=== PATIENT | female | born 1970 | race Caucasian/White ===

== ENCOUNTER 2024-01-02 22:19 | Inpatient (IN) | payer BC, SELFPAY ==
--- NOTE | 2024-01-02 16:53 | ED.PDOC.TRB ---
ED Provider Triage
-
Patient seen by provider in Triage?: Seen in Triage
Attestation: A medical screening examination has been initiated by a qualified medical provider. Based on the assessment performed at this time, it has been determined that an emergent medical condition may exist and the patient has been informed
that further medical evaluation and possible additional diagnostic testing may be needed.
HPI: 53yoF here with R sided abd pain/flank pain and bloating x 5 days. Urine started to appear a fluorescent color yesterday. Vomiting x 2 yesterday.
GENERAL: Alert , in no apparent distress
EYE: No visual abnormalities.
NECK: Trachea midline
ENT: No visible abnormalities.
LUNGS: No acute respiratory distress
NEUROLOGICAL: Alert and oriented
SKIN: Skin intact. No visible changes.
MUSCULOSKELETAL: Moving extremities normally
PSYCH: Normal and appropriate interaction.
This is a medical evaluation conducted in person to initiate diagnostic evaluation and provide initial therapeutics. Please see further documentation by the treating clinician.
Abdominal labs, UA, and CT abdomen ordered.
[2024-01-02 16:54] VITALS: BP 139/87
[2024-01-02 17:37] LABS: % Basophils 0.4 % (0-2); % Immature Granulocytes 0.7 % (0-0.5); % Lymphocytes 5.7 % (20.5-51.1); % Monocytes 5.7 % (1.7-9.3); % Neutrophils 86.5 % (42.2-75.2); Absolute Basophils 0.1 10^3/uL (0-0.2); Absolute Eosinophils 0.2 10^3/uL (0-0.7); Absolute Immature Granulocytes 0.1 10^3/uL (0-0.05); Absolute Monocytes 1.1 10^3/uL (0.1-0.6); Absolute Neutrophils 15.9 10^3/uL (1.4-6.5); Hematocrit 39.3 % (37.0-47.0); Mean Corp Hgb Conc. 33.1 g/dL (33.0-37.0); Mean Corpuscular Hgb 27.7 pg (27.0-31.0); Mean Corpuscular Volume 83.6 fL (81.0-99.0); Mean Platelet Volume 11.1 fL (7.4-10.4); Nucleated Red Blood Cells % 0 %; Platelet Count 256 10^3/uL (130-400); Red Cell Dist. Width 15.2 % (11.5-14.5); White Blood Cell Count 18.4 10^3/uL (4.8-10.8)
[2024-01-02 17:50] LABS: ALT (SGPT) 328 U/L (0-35); AST (SGOT) 110 U/L (14-36); Albumin 4.1 g/dl (3.5-5.0); Alkaline Phosphatase 537 U/L (38-126); Blood Urea Nitrogen 14 mg/dl (7-17); Calcium 9.7 mg/dl (8.4-10.2); Carbon Dioxide 21 mmol/L (22-30); Chloride 103 mmol/L (98-107); Glucose 101 mg/dl (70-99); Lipase 34 U/L (23-300); Potassium 3.6 mmol/L (3.5-5.1); Sodium 137 mmol/L (135-145); eGFR > 60.00
[2024-01-02 17:58] LABS: Urine Albumin Negative (Neg - Trace); Urine Bilirubin 1+ (Negative); Urine Character Clear (Clear); Urine Color Yellow; Urine Glucose Negative (Negative); Urine Ketone 2+ (Negative); Urine Leukocyte Negative (Negative); Urine Nitrite Negative (Negative); Urine Occult Blood Negative (Negative); Urine Specific Gravity 1.005 (<1.030); Urine Urobilinogen Negative (Neg - 1+)
--- NOTE | 2024-01-02 20:53 | ED.GENMED ---
History of Present Illness
General
Chief Complaint: Abdominal Pain
Source: patient
Time Seen by Provider: 01/02/24 20:52
History of Present Illness
History of Present Illness:
53yoF with a history of asthma and tobacco use presenting for evaluation of abdominal pain. Patient reports right upper quadrant abdominal pain for the past 5 days. Pain intermittently radiates to the back. Pain is worse after eating. She had a
similar pain 6 months ago which resolved spontaneously. She started to notice that her skin appeared jaundiced yesterday. She also noticed that her urine appeared to be a fluorescent color. She had 2 episodes of vomiting yesterday and has not
been eating much due to her symptoms. She denies any fevers, chills, diarrhea. Previous abdominal surgeries include a section.
Phy Exam
General Physical Exam
General Presentation: no apparent distress
General age: appears stated age
General Skin: warm and dry
General Habitus: normal
General Mental: alert
Eye Exam
Eye Exam: other (Scleral icterus noted)
Cardiovascular Exam
Cardiovascular Exam: regular rate/rhythm
Pulmonary Exam
Pulmonary Exam: lungs clear, no respiratory distress, no crackles and no wheezing
Gastrointestinal Exam
Gastrointestinal Exam: soft, non distended and tender (Mild RUQ tenderness. Negative Mari's sign. No CVA tenderness. )
Cuco Coma Scale
Eye Opening: Spontaneous
Verbal Response: Oriented
Motor Response: Obeys Commands
GCS Total Score: 15
Skin Exam
Skin Exam: jaundice
Psychiatric Exam
Psychiatric Exam: normal mood/affect
Course
Orders/Labs/Results
Orders:
Orders
01/02/24 17:04
Complete Blood Count/With Diff Urgent
Comprehensive Metabolic Panel Urgent
Lipase Urgent
01/02/24 17:10
CT Abd/pelvis W Iv Cont Urgent
Comment:
Reason For Exam: R sided abd/flank pain
01/02/24 17:51
Urinalysis Reflex To Culture Urgent
Date Specimen was Collected: 01/02/24
Time Specimen was Collected: 17:46
01/02/24 19:10
US Abdomen Complete/Upper Urgent
Comment:
Reason For Exam: R sided abd pain, abnormal CT
01/02/24 21:12
0.9% Sodium Chloride 1000 ml [Nss] 1,000 ml IV BOLUS
CefTRIAXone [Rocephin] 2,000 mg IV NOW STA
MetroNIDAZOLE 500 MG/100 ML [Flagyl 500 mg] 100 ml IV ONCE
01/02/24 21:18
Admit/Transfer Patient As Directed
Co-Sign Provider:
Level of Care: Inpatient admission
Assign to:: Medical/Surgical
Physician / Group: hospitalist
Diagnosis: choledocholithiasis
Reason for Hospitalization: obstructed common bile duct
Expected length of stay greater than two midnights?: Yes
ELOS- Estimated Length of Stay in days: 2
I certify the patient meets the requirements for IP care: Yes
PRN Pain Medication Management As Directed
May give lesser potent ordered pain med per pt: Yes
preference::
Protocol:: Medication orders for pain may be administered in a
manner that supports deferring to patient preference
when the pt is:
- Requesting an ordered lesser potent pain medication.
Least to most potent pain medications are defined
as: acetaminophen < NSAID < tramadol < opioids
(morphine, oxycodone, hydromorphone).
- Requesting a lesser dose of the same medication IF
ORDERED.
- Requesting a less intrusive route of administration
if both routes are prescribed by the provider (PO <
IV).
01/02/24 21:19
Code Status As Directed
Resuscitation Status: Full Code
01/02/24 21:45
Sterile Water [Sterile Water For Injection] 20 ml .ROUTE .STK-MED
01/02/24 22:00
Flush (0.9% Sodium Chloride) [Flush (Nss)] See Dose Instructions IV PER PROTOCOL
01/02/24 22:09
Ketorolac [Toradol] 15 mg IV NOW STA
Abnormal Lab Results
01/02/24 01/02/24
17:04 17:51
WBC 18.4 H 10^3/uL
(4.8-10.8)
RDW 15.2 H %
(11.5-14.5)
MPV 11.1 H fL
(7.4-10.4)
Abs Immat Gran (auto) 0.1 H 10^3/uL
(0-0.05)
Absolute Neuts (auto) 15.9 H 10^3/uL
(1.4-6.5)
Absolute Lymphs (auto) 1.0 L 10^3/uL
(1.2-3.4)
Absolute Monos (auto) 1.1 H 10^3/uL
(0.1-0.6)
Immature Gran % 0.7 H %
(0-0.5)
Neutrophils % 86.5 H %
(42.2-75.2)
Lymphocytes % 5.7 L %
(20.5-51.1)
Carbon Dioxide 21 L mmol/L
(22-30)
Glucose 101 H mg/dl
(70-99)
Total Bilirubin 8.0 H mg/dl
(0.2-1.3)
AST 110 H U/L
(14-36)
ALT 328 H U/L
(0-35)
Alkaline Phosphatase 537 H U/L
(38-126)
Urine Ketones 2+ A
(Negative)
Urine Bilirubin 1+ A
(Negative)
01/02/24 17:04
09/30/24 17:04
Vital Signs
Initial and Last Documented VS:
Initial Vital Signs
Temp Pulse Resp BP Pulse Ox
98 F 105 16 139/87 98
01/02/24 16:54 01/02/24 16:54 01/02/24 16:54 01/02/24 16:54 01/02/24 16:54
Last Documented Vital Signs
Temp Pulse Resp BP Pulse Ox
98 F 105 16 139/87 98
01/02/24 16:54 01/02/24 16:54 01/02/24 16:54 01/02/24 16:54 01/02/24 16:54
MDM/Problems Addressed
Differential Diagnosis Includes:
53yoF here with RUQ pain x 5 days with jaundice x 1 day. No f/c. Patient is afebrile and hemodynamically stable. Skin appears jaundiced on exam. No signs of peritonitis on abdominal exam. Differential diagnosis includes but is not limited to:
Cholecystitis, choledocholithiasis, cholangitis, hepatitis, pancreatitis, malignancy
Initial ED plan: Patient initially seen in triage. Abdominal labs and CT abdomen were ordered. Labs reveal a leukocytosis with a white count of 18.4. Total bilirubin 8. AST 110 and ALT 328. Lipase is normal. CT shows possible mild gallbladder
wall thickening with intrahepatic and extrahepatic biliary tract dilatation. Ultrasound recommended for more complete evaluation.
*Critical Care Note
Total Time (30-74mins, 75-104mins- exclusive of procedures): Not Applicable
Update Note
Update Note:
Abdominal ultrasound was added and findings are concerning for a common bile duct stone. IV Rocephin and Flagyl ordered given leukocytosis. She was admitted for further evaluation and management.
ED Attending Note
-
Portions of this chart may have been created with voice recognition software.� Occasional wrong word or��sound alike� substitutions may have occurred due to the inherent limitations of voice recognition software.
Discharge Plan
Departure
Patient Disposition: Admit
Date of Disposition: 01/02/24
Time of Disposition: 21:14
Presentation/result/management discussed w/ accepting MD/DO: Hospitalist
Discharge Problem:
Obstructive jaundice
Prescriptions:
No Action
albuterol sulfate 90 mcg/actuation Hfa Aerosol Inhaler
2 puff INHALATION R Q6HPRN PRN (Reason: sob)
ibuprofen-acetaminophen [Advil Dual Action] 125-250 mg Tablet
2 tab PO Q8HPRN PRN (Reason: mild pain)
Referrals:
UNKNOWN - PT DOES,NOT KNOW [Family Provider] -
Interventions
Interventions:
HH-Rhmxqt-Pqjllkckws Assessment Last Done: 01/02/24 20:44
Discharge Date and Time
Print Language: [place] LUCI[place]
--- NOTE | 2024-01-02 21:36 | HPS.HSE ---
Family Physician
-
Family Physician: NOT KNOW UNKNOWN - PT DOES
Chief Complaint
-
Jaundice, right upper quadrant pain
History of Present Illness
This is a 53-year-old with a past medical history of asthma mild intermittent who presents to the emergency department with 5 days of abdominal pain and 1 day of jaundice.
Patient reports sudden onset of right upper quadrant abdominal pain that radiates to the back. Occasional epigastric pain. Nausea and an episode of bilious emesis. Denies fevers chills diarrhea. Denies lightheadedness or dizziness. Unable to
tolerate p.o. over the last 3 days. Reported that she noticed discoloration of her urine this morning and sent from the ED. She denied any dysuria or flank pain.
He denies any prior intra-abdominal surgeries. Denies abdominal bloating.
He remained emergency department the patient was afebrile blood pressure was 139/87 pulse was 100 and she had mild oxygen saturation room air. She had a white count of 18,000 with a normal hemoglobin and blood count. Chemistries showed normal
lites. Elevated total bilirubin of 8 ALT 110 AST 328 and alk phos 537. Her lipase was normal. A CT scan of the abdomen pelvis as well as right upper current ultrasound shows choledocholithiasis with obstruction in the common bile duct. There was
no sonographic Mari sign. Cholecystitis could not be ruled out but there was no definite gallbladder distention.
Medical History
Past Medical History
Past Medical History: Reports Asthma
Past Surgical History: Reports None
Social History
Tobacco: Smoker
Alcohol: None
Drug: None
Personal:
Living: With Family
Employment: Employed
Family History
Family History: CAD
Allergies / Home Medications
Allergies reflects when Allergies were last updated in [facility].
Home Medications with original date entered in [facility]
Allergy/Medication List:
Allergies
Allergy/AdvReac Type Severity Reaction Status Date / Time
Penicillins Allergy Rash Verified 01/02/24 16:58
Home Medications
albuterol sulfate 90 mcg/actuation aerosol inhaler 2 puff inhalation R Q6HPRN PRN sob 01/02/24
ibuprofen 125 mg-acetaminophen 250 mg tablet (Advil Dual Action) 2 tab PO Q8HPRN PRN mild pain 01/02/24
Review of Systems
-
History Source: Patient
Constitutional: Reports No Symptoms
EENT: Reports No Symptoms
Respiratory: Reports No Symptoms
Cardiac: Reports No Symptoms
Abdomen/GI: Reports Abdominal Pain, Nausea and Vomiting
: Reports Other (Yellow urine)
Musculoskeletal: Reports No Symptoms
Skin: Reports No Symptoms
Neurological: Reports No Symptoms
Endocrine: Reports No Symptoms
Hematologic/Lymphatic: Reports No Symptoms
Psych: Reports No Symptoms
Physical Exam
Vital Signs
Vital Signs
Temp Pulse Resp BP Pulse Ox
98 F 105 16 139/87 98
01/02/24 16:54 01/02/24 16:54 01/02/24 16:54 01/02/24 16:54 01/02/24 16:54
Physical Exam
General: Well Developed, Well Nourished and Comfortable
HEENT: NormoCephalic, Moist mucous membranes, Atraumatic, PERRLA and Other (scleral icterus)
Respiratory: Clear
Cardiac: S1/S2 and Regular Rhythm
Breast: Deferred by me
GI: Soft, Non Distended and Normal Bowel Sounds
Rectal: Deferred by Provider
Genito-urinary: Deferred by me
Musculoskeletal: No Clubbing, No Cyanosis and No Edema
Skin: Jaundice
Neuro: AO x 3
Hematologic/Lymphatic: No Lymphadenopathy
Psych: Calm
Laboratory Results
-
01/02/24 17:04
01/02/24 17:04
Laboratory Results
Total Bilirubin 8.0 mg/dl (0.2-1.3) H 01/02/24 17:04
AST 110 U/L (14-36) H 01/02/24 17:04
ALT 328 U/L (0-35) H 01/02/24 17:04
Alkaline Phosphatase 537 U/L (38-126) H 01/02/24 17:04
Lipase 34 U/L (23-300) 01/02/24 17:04
Data Reviewed
-
CT Scan: Report Reviewed by me
Ultrasound: Report Reviewed by me
Lab Data: Labs Reviewed by me
Old Records: Reviewed
Impression/Plan
-
IMPRESSION:
53-year-old with history of asthma who presents with 5 days of recurrent right lower quadrant abdominal pain without fevers or chills as well as jaundice found to have elevated total bilirubin, mild elevation in AST ALT and alk phos with normal
lipase as well as imaging showing gallbladder sludge and stones as well as common bile duct dilatation consistent with CBD obstruction. She is currently well-appearing and comfortable. She is afebrile. She is hemodynamically stable. She has no
known risk factors for resistant organisms.
PLAN:
Choledocholithiais -patient with choledocholithiasis with obstructive jaundice, does not meet criteria for acute cholangitis. Cannot absolutely rule out cholecystitis but no definite evidence at this time.
- admit to med surg
- npo
- iv fluids, pain control and antiemetics
- given leukocytosis and possible calculuous cholecystitis, started on IV abx, ceftriaxone/metronidazole due to limited risk for resistant organisms
- GI consultation for likely ercp
- trend LFTs and bilirubin
- surgery consultation.
Asthma - No acute exacerbaction
- continue prn albuterol
DVT PPX - lovenox sq
Code status - Full Code
[2024-01-02] MEDS: ROCEPHIN 2000 MG IV (21:48)
[2024-01-02] MEDS: NSS 1000 IV (22:02)
[2024-01-02] MEDS: TORADOL 15 MG IV (22:24)
[2024-01-02 22:35] VITALS: BP 149/99
[2024-01-02 22:45] VITALS: BP 160/96
[2024-01-02 23:10] VITALS: BMI 36.5
[2024-01-02] MEDS: D5LR 1000 IV (23:26)
[2024-01-02] MEDS: FLAGYL 500 MG 100 IV (23:35)
[2024-01-02] MEDS: DILAUDID 0.5 MG IV (23:36)
[2024-01-03] VITALS (11 sets, daily range): BP systolic 126–173; BP diastolic 66–107
--- NOTE | 2024-01-03 00:42 | PTCARENOTE ---
Patient arrived to unit via stretcher around 22:25 with dx of Choledocholithiasis. Patient aaox3. Pleasant and cooperative with care. No signs of distress. Oriented to unit. Call kelley within reach.
[2024-01-03 06:36] LABS: Hematocrit 35.7 % (37.0-47.0); Hemoglobin 12.1 g/dL (12.0-16.0); Mean Corp Hgb Conc. 33.9 g/dL (33.0-37.0); Mean Corpuscular Hgb 28.1 pg (27.0-31.0); Mean Platelet Volume 10.6 fL (7.4-10.4); Platelet Count 203 10^3/uL (130-400); Red Cell Dist. Width 15.2 % (11.5-14.5); White Blood Cell Count 16.1 10^3/uL (4.8-10.8)
[2024-01-03 06:59] LABS: ALT (SGPT) 238 U/L (0-35); AST (SGOT) 64 U/L (14-36); Albumin 3.5 g/dl (3.5-5.0); Alkaline Phosphatase 473 U/L (38-126); Blood Urea Nitrogen 11 mg/dl (7-17); Calcium 8.8 mg/dl (8.4-10.2); Carbon Dioxide 21 mmol/L (22-30); Chloride 105 mmol/L (98-107); Direct Bilirubin 6.2 mg/dl (0.0-0.4); Estimated Creatinine Clearance 117 ml/min; Glucose 113 mg/dl (70-99); Potassium 3.2 mmol/L (3.5-5.1); Sodium 140 mmol/L (135-145); Total Bilirubin 7.3 mg/dl (0.2-1.3); Total Protein 6.3 g/dl (6.3-8.2); eGFR > 60.00
[2024-01-03] MEDS: FLAGYL 500 MG 100 IV ×3 (07:09→23:32)
[2024-01-03] MEDS: TORADOL 10 MG IV ×2 (07:21→15:41)
--- NOTE | 2024-01-03 08:00 | CON.GI ---
Addendum entered and electronically signed by Carrie Anaya MD 01/03/24 13:48:
I saw and examined the patient.
The BAGGING MACHINE OPERATOR's note was reviewed and I agree with the note.
Comment: This is a 53 female with history of asthma who was in her usual state of health up until about 5 days prior to admission when she started to develop lower abdominal pain initially which did subsequently radiate to the right upper quadrant.
She also has not really eaten much oral intake for the past 5 days because of the pain. She denies any fevers or chills she did have 2 episodes of vomiting on Tuesday but none since then and also started to notice dark urine since Tuesday, denies
jimmy colored stools, no diarrhea or constipation, no rectal bleeding or melena, no prior endoscopy or colonoscopy. also denies any recent weight loss. She did have a similar episode about 6 months ago but that seems to have lasted for about a day
or 2 and resolved. Since admission her imaging has shown choledocholithiasis with ductal dilatation and on CT questionable small pancreatic mass and on ultrasound also noted to have possible complex liver cyst. She did have abnormal LFTs with
normal lipase and mild leukocytosis noted and has been on antibiotics since admission.
Assessment and plan abdominal pain with symptoms of nausea vomiting imaging with choledocholithiasis and labs consistent with it. Will schedule for ERCP and also possible EUS defer decision of EUS to Dr. Francis given questionable small mass noted in
the pancreatic head and complex liver cyst also noted on ultrasound. She is also been evaluated by Dr. Dallas for eventual cholecystectomy timing per surgery. Continue antibiotics for now and could probably DC after the ERCP once the obstruction
is resolved. Will also get Hepatitis serologies. Also needs OP screening colonoscopy.
Original Note:
Consultation
-
Date/Time Consultation Requested: 01/02/24 @ 23:00
Date/Time Consultation Performed: 01/03/24 @ 08:00
Requesting Provider: Dr. Middleton
Performing Provider: WILLIAM Gandhi; Dr. Carrie Anaya
Reason for Consultation: choledocholithiasis, jaundice
Medical History
Chief Complaint / HPI
Chief Complaint: jaundice, RUQ pain
History of Present Illness:
The pt is a 53 yo female with a PMH significant for asthma, who presented to the ER with complaints of abdominal pain in the RUQ and jaundice, found to have CT and ultrasound findings concerning for possible choledocholithiasis with increased liver
enzymes. She reports that for the past 5 days she has been having abdominal pain, starting in the lower abdomen then progressively up into the mid abdomen under her right breast. She reports the pain was continuous, radiating into her back
worsening over the past several days. She notes that she did have an episode of vomiting on Tuesday and was unable to tolerate much other than clear liquids. She notes her appetite has been extremely poor otherwise. She reports on Tuesday her
urine started to get dark and she noticed some discoloration of her skin as well. She reports about 6 months ago she had a similar pain but was increasingly stressed due to her job at that time. She reports the pain did subside after 1 to 2 days.
She denies any fevers or chills. She denies any heartburn, reflux, dysphagia, odynophagia, change in bowel habits, melena, hematochezia, hematemesis, or weight loss unintentionally. She denies any prior history of liver disease or gallbladder
issues. She denies any use of blood thinners or NSAIDs. She denies any significant alcohol use. She is a less than 1 pack/day smoker for the last 40 years. She denies any drug use. She reports family history her father had throat cancer and
breast cancer among her paternal grandmother and paternal aunt.
Upon evaluation in the ER, she underwent a CT of the abdomen and pelvis and ultrasound of the abdomen which showed findings concerning for choledocholithiasis with intra and extrahepatic biliary ductal dilation. Also with possible gallbladder wall
thickening, subcentimeter low-attenuation duration right renal lesion, and few small nonspecific retroperitoneal lymph nodes. Routine labs on admission showed WBC 18,400, hemoglobin 13.0, platelets 256,000, Sodium 137, potassium 3.6, BUN 14,
creatinine 0.6, total bilirubin 8, direct bilirubin 6.2, AST 110, ALT 328, alk phos 537, lipase 34. Urinalysis showing ketones and bilirubin otherwise negative for infection. She was made n.p.o. and admitted for further evaluation by GI
Past Medical History
Past Medical History: Asthma
Past Surgical History: , Orthopedic (Bilateral ankle surgery with plates and pins after trauma) and Other (Cyst excision from her neck)
Social History
Tobacco: Smoker (<1 PPD for 40 years)
Alcohol: None
Drug: None
Family History
Family History: Cancer (father-throat cancer)
Allergies / Home Medications
Allergy/AdvReac Type Severity Reaction Status Date / Time
Penicillins Allergy Rash Verified 01/02/24 16:58
�Medication �Instructions �Recorded
albuterol sulfate 90 mcg/actuation 2 puff inhalation R Q6HPRN PRN sob 01/02/24
aerosol inhaler
ibuprofen 125 mg-acetaminophen 250 2 tab PO Q8HPRN PRN mild pain 01/02/24
mg tablet (Advil Dual Action)
Review of Systems
-
History Source: Patient
Constitutional: Reports No Symptoms
EENT: Reports No Symptoms
Respiratory: Reports No Symptoms
Cardiac: Reports No Symptoms
Abdomen/GI: Reports Abdominal Pain, Nausea and Vomiting
: Reports Dark Urine
Musculoskeletal: Reports No Symptoms
Skin: Reports Other (Jaundice)
Neurological: Reports No Symptoms
Endocrine: Reports No Symptoms
Hematologic/Lymphatic: Reports No Symptoms
Vital Signs
Temp Pulse Resp BP Pulse Ox
99.3 F 99 18 157/92 94
01/03/24 07:05 01/03/24 07:05 01/03/24 07:05 01/03/24 07:05 01/03/24 07:05
Physical Exam
Exam
General: Well Developed, Well Nourished, No Apparent Distress and Other (Jaundice)
HEENT: Normocephalic, Atraumatic and Other (B/L scleral icterus)
Respiratory: Clear
Cardiac: S1/S2 and Regular Rhythm
Breast: Deferred by me
GI: Soft, Non Distended, Normal Bowel Sounds and Tender (Right upper quadrant and mid-epigastric area)
Rectal: Deferred by Provider
Musculoskeletal: No Edema
Skin: Warm and Dry
Neuro: Awake, Alert and Oriented
Psych: Calm
Results
WBC 16.1 10^3/uL (4.8-10.8) H 01/03/24 05:35
Hgb 12.1 g/dL (12.0-16.0) 01/03/24 05:35
Hct 35.7 % (37.0-47.0) L 01/03/24 05:35
MCV 83.0 fL (81.0-99.0) 01/03/24 05:35
Plt Count 203 10^3/uL (130-400) D 01/03/24 05:35
Absolute Neuts (auto) 15.9 10^3/uL (1.4-6.5) H 01/02/24 17:04
Sodium 140 mmol/L (135-145) 01/03/24 05:35
Potassium 3.2 mmol/L (3.5-5.1) L 01/03/24 05:35
Chloride 105 mmol/L (98-107) 01/03/24 05:35
Carbon Dioxide 21 mmol/L (22-30) L 01/03/24 05:35
BUN 11 mg/dl (7-17) 01/03/24 05:35
Creatinine 0.5 mg/dL (0.6-1.0) L 01/03/24 05:35
Calcium 8.8 mg/dl (8.4-10.2) 01/03/24 05:35
Total Bilirubin 7.3 mg/dl (0.2-1.3) H 01/03/24 05:35
AST 64 U/L (14-36) H 01/03/24 05:35
ALT 238 U/L (0-35) H 01/03/24 05:35
Alkaline Phosphatase 473 U/L (38-126) H 01/03/24 05:35
Lipase 34 U/L (23-300) 01/02/24 17:04
Diagnostic Image Results:
01/02/24 US abdomen: IMPRESSION: Gallbladder with stone and sludge as well as wall thickening. Intrahepatic and extrahepatic biliary tract dilatation with FINDINGS SUSPICIOUS FOR COMMON BILE DUCT STONE. Negative sonographic Mari's sign. Complex
hypoechoic area in the right lobe of the liver adjacent to the gallbladder fossa which could represent a complex cyst, cannot exclude focal pericholecystic fluid. Consider surgical consultation. Visualized small portion of body of pancreas without
gross focal abnormality.
Head/tail of pancreas, abdominal aorta and IVC significantly obscured, most likely by overlying bowel gas.
01/02/24 Ct A/P w/IV contrast: IMPRESSION: Possible mild gallbladder wall thickening, cannot exclude some pericholecystic fluid. Findings compatible with intrahepatic and extrahepatic biliary tract dilatation, limited evaluation of overlapping
extrahepatic biliary tract and limited evaluation of pancreatic head without oral contrast opacification of duodenum. No high attenuation focus seen to confirm a gallstone in the expected location of the distal common bile duct. Ultrasound may be
helpful for more complete evaluation. On the basis of this study, small mass of the head of the pancreas or ampulla of Vater cannot be excluded. Subcentimeter low-attenuation right renal lesion too small to characterize. Limited evaluation of
intestinal tract without oral contrast, without intestinal obstruction or free air. Unremarkable appendix. Few small nonspecific retroperitoneal lymph nodes. No findings to suggest obstructive uropathy bilaterally.
Prior GI Procedures:
EGD: noone on file
Colonoscopy: none on file
Assessment / Plan
-
The pt is a 53 yo female with a PMH significant for asthma, who presented to the ER with complaints of abdominal pain in the RUQ for the last 5 days with dark urine found to have jaundice, with CT/US findings along with LFT pattern consistent with
likely choledocholithiasis. CT report indicating cannot exclude underlying pancreatic lesion although with no noted pancreatic ductal dilation. She reports no unintentional weight loss with acute onset of symptoms this past week worsening
progressively with associated nausea and vomiting and loss of appetite. She continues with right upper quadrant/epigastric pain, somewhat improved with IV narcotics. Significantly elevated LFTs with a total bilirubin 8, AST 110, ALT 328, alk phos
537, with a normal lipase. She is n.p.o., started on IV antibiotics with Rocephin and Flagyl given her leukocytosis. She denies any fevers.
Problem list:
-RUQ/epigastric pain, CT/US findings concerning for choledocholithiasis with intra/extrahepatic ductal dilatation, GBW thickening, sludge, stone, ?liver cyst
-elevated LFT's
-jaundice
-leukocytosis
-CT showing subcentimeter low attenuation right renal lesion, few small non-specific retroperitoneal lymph nodes
-mild asthma, controlled
Recommendations:
-Etiology of presenting symptoms most consistent with choledocholithiasis given LFT pattern and CT/ultrasound findings. Cannot exclude underlying pancreatic lesion per radiology read although with no PD dilation reported. She does have a chronic
history of smoking over 40 years.
-Will discuss imaging with Dr. Francis to determine the need for MRI with MRCP versus proceeding directly to EUS/ERCP.
-Continue n.p.o. status at this time
-Trend LFTs
-Will add hepatitis serologies
-Antibiotics with ceftriaxone and Flagyl as per primary team
-Surgical consultation pending
-PRN analgesics
-Further plan forthcoming pending above
Data Reviewed
-
CT Scan: Report Reviewed by me and Discussed with Physician
Ultrasound: Report Reviewed by me and Discussed with Physician
-
-
Thank you for consultation and allowing me to participate in the patient's care. Please call the supervisor of instruction GI physician during the after hours with any questions or concerns.
--- NOTE | 2024-01-03 09:08 | CON.GS ---
Medical History
-
Chief Complaint: RUQ/epigastric pain
History of Present Illness:
Patient is a 53 yo F with a H obesity, asthma, active tobacco use, s/p bilateral ankle surgery, and s/p who presents with approximately 5 days of abdominal pain. Ms. Carcamo states that her symptoms began as lower abdominal discomfort
which has progressed to more epigastric and RUQ abdominal pain. She reports more back pain days previously. Currently she states that her symptoms are mildly improved, but not resolved. No nausea or vomiting. No fevers or chills. She reports a
jaundice and in particular highlighter yellow/orange urine prompting presentation to the ED. She denies any pale stools. She reports a more mild attack of similar pain approximately 6 months ago which lasted a day before self resolving.
Past Medical History
Past Medical History: Asthma
Past Surgical History: and Orthopedic (Ankle surgery)
Social History
Tobacco: Smoker (1 PPD)
Alcohol: None
Drug: None
Family History
Family History: Reviewed & Noncontributory
Allergies / Home Medications
Allergy/AdvReac Type Severity Reaction Status Date / Time
Penicillins Allergy Rash Verified 01/02/24 16:58
�Medication �Instructions �Recorded �Confirmed �Type
albuterol sulfate 90 mcg/actuation 2 puff inhalation R Q6HPRN PRN sob 01/02/24 01/02/24 History
aerosol inhaler
ibuprofen 125 mg-acetaminophen 250 2 tab PO Q8HPRN PRN mild pain 01/02/24 01/02/24 History
mg tablet (Advil Dual Action)
Review of Systems
-
A 10 point review of systems was completed, and was negative except as per HPI.
Physical Exam
Vital Signs
Temp Pulse Resp BP Pulse Ox
99.3 F 99 18 157/92 94
01/03/24 07:05 01/03/24 07:05 01/03/24 07:05 01/03/24 07:05 01/03/24 07:05
01/02/24 01/03/24 01/04/24
06:59 06:59 06:59
Actual Weight 93.553 kg
Body Mass Index (BMI) 36.5
Lab Results
01/03/24 05:35
01/03/24 05:35
WBC 16.1 10^3/uL (4.8-10.8) H 01/03/24 05:35
Hgb 12.1 g/dL (12.0-16.0) 01/03/24 05:35
Hct 35.7 % (37.0-47.0) L 01/03/24 05:35
Plt Count 203 10^3/uL (130-400) D 01/03/24 05:35
Abs Immat Gran (auto) 0.1 10^3/uL (0-0.05) H 01/02/24 17:04
Neutrophils % 86.5 % (42.2-75.2) H 01/02/24 17:04
Physical Exam
General: Well Developed, Well Nourished, No Apparent Distress and Pain
HEENT: Scleral Icterus
Respiratory: Wheezes and Non Labored Respirations
Cardiac: Regular Rhythm
GI: Soft, Non Distended, Tender (Epigastrium/RUQ, negative Mari sign), Obese and Other (Nonperitoneal)
Musculoskeletal: No Edema
Skin: Warm and Dry
Neuro: Nonfocal/Grossly Intact
Data Reviewed
-
CT Scan: Image Personally Visualized and interpreted
Ultrasound: Image Personally Visualized and interpreted
Labs: Labs Reviewed by me
Assessment / Plan
-
Patient is a 53 yo F with p/w choledocholithiasis
The natural history and pathophysiology of biliary and stone disease was discussed. Anatomy was briefly reviewed. Role of cholecystectomy in preventing future episodes of choledocholithiasis and episodes of biliary colic or cholecystitis was
discussed. We discussed that typically we recommend cholecystectomy during the same admission. Of note, patient expresses a strong interest in discharge as soon as possible with outpatient surgical follow-up. GI consult noted, plan for ERCP
today. All questions answered. Will continue to follow.
-- No plans for surgical intervention today, role of cholecystectomy was reviewed, timing TBD
-- GI consult noted, plan for ERCP today
-- If remains in the hospital, make NPO past midnight for possible cholecystectomy tomorrow
--- NOTE | 2024-01-03 09:36 | W.PN.HOSP.TC ---
Today's Communication/Plan
-
see bold
Assessment / Plan
Assessment / Plan
53-year-old with history of asthma who presents with 5 days of recurrent right lower quadrant abdominal pain without fevers or chills as well as jaundice found to have elevated total bilirubin, mild elevation in AST ALT and alk phos with normal
lipase as well as imaging showing gallbladder sludge and stones as well as common bile duct dilatation consistent with CBD obstruction. She is currently well-appearing and comfortable. She is afebrile. She is hemodynamically stable. She has no
known risk factors for resistant organisms.
Gen: NAD, AAOx3.
Eyes: EOMI, PERRLA, mod scleral icterus.
Neck: supple.
CV: RRR, +S1/S2, no m/r/g.
Resp: CTAB, no rales, wheezes, or rhonchi.
Abd: +BS, soft, NT, ND
Skin: No rashes. + jaundice
Neuro: CN 2-12 intact, non-focal.
Psych: Normal mood and affect.
CT A/P: Possible mild gallbladder wall thickening, cannot exclude some pericholecystic fluid. Findings compatible with intrahepatic and extrahepatic biliary tract dilatation, limited evaluation of overlapping extrahepatic biliary tract and limited
evaluation of pancreatic head without oral contrast opacification of duodenum. No high attenuation focus seen to confirm a gallstone in the expected location of the distal common bile duct. Ultrasound may be helpful for more complete evaluation. On
the basis of this study, small mass of the head of the pancreas or ampulla of Vater cannot be excluded.
RUQ U/S: Gallbladder with stone and sludge as well as wall thickening. Intrahepatic and extrahepatic biliary tract dilatation with FINDINGS SUSPICIOUS FOR COMMON BILE DUCT STONE. Negative sonographic Mari's sign. Complex hypoechoic area in the
right lobe of the liver adjacent to the gallbladder fossa which could represent a complex cyst, cannot exclude focal pericholecystic fluid. Consider surgical consultation. Visualized small portion of body of pancreas without gross focal abnormality.
Acute choledocholithiasis:
-NPO/IVF/pain control
-surgery and GI following
-cont Rocephin/Flagyl
-trend LFTs
-case discussed with GI. For EUS/ERCP today.
Other problems:
Asthma: Not in acute exacerbation, cont PRN albuterol
Obesity due to excess calories: Affects all aspects of care, encourage weight loss
FULL/Lovenox
Anticipated Discharge: 24 - 48 hours
Subjective/Interval History
-
Date of Service: January 03, 2024
Currently denies abd pain.
Objective Data
-
Labs:
Laboratory Results
01/03/24
05:35
WBC 16.1 H
Hgb 12.1
Hct 35.7 L
Plt Count 203 D
Sodium 140
Potassium 3.2 L
Chloride 105
Carbon Dioxide 21 L
BUN 11
Creatinine 0.5 L
Glucose 113 H
Calcium 8.8
Total Bilirubin 7.3 H
AST 64 H
ALT 238 H
Alkaline Phosphatase 473 H
Vital Signs:
Vital Signs
Temp Pulse Resp BP Pulse Ox
99.3 F 99 18 157/92 94
01/03/24 07:05 01/03/24 07:05 01/03/24 07:05 01/03/24 07:05 01/03/24 07:05
I&O
01/02/24 01/03/24 01/04/24
06:59 06:59 06:59
Intake Total 745 / 745
Balance 745 / 745
--- NOTE | 2024-01-03 11:01 | CM ---
unit trust manager reviewed patient's chart and met with patient and patient lives with her eldest son and mother in a 2 story home, patient has 1st floor set up with bed and bath. Patient is independent with adl's and ambulation, no dme, patient drives.
Pharmacy; [facility] in [place]
PCP: Patient does not have a PCP, list of PCP's provided to patient.
Plan; Home when stable, no needs.
[2024-01-03] MEDS: D5LR 1000 IV ×2 (11:32→21:19)
[2024-01-03 15:50] LABS: Hepatitis B Surface Antigen Negative (Negative)
[2024-01-03 16:07] LABS: Hepatitis B Core Ab, Total Negative (Negative); Hepatitis B Surface Antibody Negative; Hepatitis C Antibody Negative (Negative)
[2024-01-03 16:11] LABS: Hepatitis A Antibody, Total Negative (Negative)
[2024-01-03] MEDS: ZOFRAN 4 MG IV (20:32)
[2024-01-03] MEDS: FLUSH (NSS) 1 FLUSH IV ×2 (21:17→21:18)
[2024-01-03] MEDS: STERILE WATER FOR INJECTION 20 ML IV (21:18)
[2024-01-03] MEDS: ROCEPHIN 2000 MG IV (21:18)
--- NOTE | 2024-01-03 21:50 | PTCARENOTE ---
Received patient from PACU via stretcher around 21:05. Patient AAOx3. Denies pain or discomfort. Vitals stable. Call kelley within reach.
[2024-01-04 00:40] VITALS: BP 105/68
[2024-01-04 01:40] VITALS: BP 107/68
[2024-01-04 05:54] VITALS: BP 111/70
[2024-01-04 07:10] VITALS: BP 124/79
--- NOTE | 2024-01-04 08:05 | W.PN.GI.CBS2 ---
Today's Communication / Plan
-
trend labs
Assessment / Plan
-
The pt is a 53 yo female with a PMH significant for asthma, who presented to the ER with complaints of abdominal pain in the RUQ for the last 5 days with dark urine found to have jaundice, with CT/US findings along with LFT pattern consistent with
likely choledocholithiasis. CT report indicating cannot exclude underlying pancreatic lesion although with no noted pancreatic ductal dilation. She reports no unintentional weight loss with acute onset of symptoms this past week worsening
progressively with associated nausea and vomiting and loss of appetite. She continues with right upper quadrant/epigastric pain, somewhat improved with IV narcotics. Significantly elevated LFTs with a total bilirubin 8, AST 110, ALT 328, alk phos
537, with a normal lipase. She is n.p.o., started on IV antibiotics with Rocephin and Flagyl given her leukocytosis. She denies any fevers.
Problem list:
-RUQ/epigastric pain, CT/US findings concerning for choledocholithiasis with intra/extrahepatic ductal dilatation, GBW thickening, sludge, stone, ?liver cyst
-elevated LFT's
-jaundice
-leukocytosis
-CT showing subcentimeter low attenuation right renal lesion, few small non-specific retroperitoneal lymph nodes
-mild asthma, controlled
Recommendations:
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
-Trend LFTs - labs pending
-Await surgery input regarding timing of cholecystectomy and if unable to secondary to the large cystic duct stone Dr. Francis to attempt repeat ERCP with lithotripsy and stone extraction
-Continue antibiotics
-CT question possible pancreatic lesion EUS was negative for pancreatic lesions
-PRN analgesics
-Also with rash on her right arm unclear if related to possible drug reaction although it is isolated only to her right arm or if it is related to possible heat pack seems to have noticed it after her procedure yesterday not itchy but if it does get
itchy will give her Benadryl, not swollen either
Subjective
Subjective
Date of Service: January 04, 2024
She has a rash on her right hand post procedure and nowhere else on her body, mild epigastric discomfort, no nausea vomiting afebrile
Labs today are pending
Objective
Data Reviewed
Laboratory Data:
Laboratory Results
01/03/24 05:35
01/03/24 05:35
Laboratory Results
Total Bilirubin 7.3 mg/dl (0.2-1.3) H 01/03/24 05:35
AST 64 U/L (14-36) H 01/03/24 05:35
ALT 238 U/L (0-35) H 01/03/24 05:35
Alkaline Phosphatase 473 U/L (38-126) H 01/03/24 05:35
Lipase 34 U/L (23-300) 01/02/24 17:04
Vital Signs and I&O:
Vital Signs
Temp Pulse Resp BP Pulse Ox
98.0 F 72 18 124/79 95
01/04/24 07:10 01/04/24 07:10 01/04/24 07:10 01/04/24 07:10 01/04/24 07:10
I&O
01/03/24 01/04/24 01/05/24
06:59 06:59 06:59
Intake Total 745 / 745 1595 / 1595
Balance 745 / 745 1595 / 1595
01/03/24 ERCP
Impression: - The major papilla appeared to be small.
- A filling defect consistent with a stone was seen on
the cholangiogram.
- A filling defect consistent with a stone was seen on
the cholangiogram.
- The upper third of the main bile duct was mildly
dilated with large stone in cystic take off causing
mild obstruction suggestive of Mirrizzi's syndrome.
- Choledocholithiases were found. Partial removal was
accomplished with biliary sphincterotomy, the large
stone in cystic take off could not be removed due to
its size (larger than CBD); a stent was inserted.
- A biliary sphincterotomy was performed.
- The biliary tree was swept.
- The biliary tree was swept and debris/pus was found.
- One plastic stent was placed into the gallbladder.
- One plastic stent was placed into the common bile
duct.
01/03/24 EUS
Impression: - There was no sign of significant pathology in the
pancreatic head and pancreatic body.
- Two stones were visualized endosonographically in
the lower third of the main bile duct and in the
cystic duct.
- Two enlarged lymph nodes were visualized in the
roberto hepatis region.
- There was no evidence of significant pathology in
the left lobe of the liver.
- No specimens collected.
Physical Exam
Physical Exam
Cardiology: Normal Sinus Rhythm
Pulmonary: Clear
GI: Soft, Non Distended, Tender (epigastric) and Normal Bowel Sounds
[2024-01-04] MEDS: TORADOL 10 MG IV ×2 (08:23→22:19)
[2024-01-04] MEDS: FLAGYL 500 MG 100 IV ×2 (08:25→15:40)
--- NOTE | 2024-01-04 09:13 | W.PN.HOSP.TC ---
Today's Communication/Plan
-
see bold
Assessment / Plan
Assessment / Plan
Gen: NAD, AAOx3.
Eyes: EOMI, PERRLA, mod scleral icterus.
Neck: supple.
CV: remains RRR, +S1/S2, no m/r/g.
Resp: CTAB, no rales, wheezes, or rhonchi.
Abd: +BS, soft, NT to light palpation, ND
Skin: macular rash on R hand (greatest on the dorsum). + jaundice
Neuro: CN 2-12 intact, non-focal.
Psych: Normal mood and affect.
CT A/P: Possible mild gallbladder wall thickening, cannot exclude some pericholecystic fluid. Findings compatible with intrahepatic and extrahepatic biliary tract dilatation, limited evaluation of overlapping extrahepatic biliary tract and limited
evaluation of pancreatic head without oral contrast opacification of duodenum. No high attenuation focus seen to confirm a gallstone in the expected location of the distal common bile duct. Ultrasound may be helpful for more complete evaluation. On
the basis of this study, small mass of the head of the pancreas or ampulla of Vater cannot be excluded.
RUQ U/S: Gallbladder with stone and sludge as well as wall thickening. Intrahepatic and extrahepatic biliary tract dilatation with FINDINGS SUSPICIOUS FOR COMMON BILE DUCT STONE. Negative sonographic Mari's sign. Complex hypoechoic area in the
right lobe of the liver adjacent to the gallbladder fossa which could represent a complex cyst, cannot exclude focal pericholecystic fluid. Consider surgical consultation. Visualized small portion of body of pancreas without gross focal abnormality.
ERCP 01/03/24: - The major papilla appeared to be small.
- A filling defect consistent with a stone was seen on
the cholangiogram
- The upper third of the main bile duct was mildly
dilated with large stone in cystic take off causing
mild obstruction suggestive of Mirrizzi's syndrome.
- Choledocholithiases were found. Partial removal was
accomplished with biliary sphincterotomy, the large
stone in cystic take off could not be removed due to
its size (larger than CBD); a stent was inserted.
- A biliary sphincterotomy was performed.
- The biliary tree was swept.
- The biliary tree was swept and debris/pus was found.
- One plastic stent was placed into the gallbladder.
- One plastic stent was placed into the common bile
duct.
Acute choledocholithiasis with acute ascending cholangitis:
-ERCP above, biliary sphincterotomy, biliary tree with pus, unable to remove choledocholithiasis at cystic take off, plastic stents in GB and CBD
-initially NPO with IVFs, now on clears after ERCP on 01/03/24
-surgery and GI following
-cont Rocephin/Flagyl for 2 further days, reasonable to c/s ID
-trend LFTs
Other problems:
Asthma: Not in acute exacerbation, cont PRN albuterol
Obesity due to excess calories: Affects all aspects of care, encourage weight loss
FULL/Lovenox
Anticipated Discharge: > 48 hours
Subjective/Interval History
-
Date of Service: January 04, 2024
c/o mild RUQ pain
Objective Data
-
Labs:
Laboratory Results
01/04/24
08:14
WBC Pending
Hgb Pending
Hct Pending
Plt Count Pending
Sodium Pending
Potassium Pending
Chloride Pending
Carbon Dioxide Pending
BUN Pending
Creatinine Pending
Glucose Pending
Calcium Pending
Total Bilirubin Pending
AST Pending
ALT Pending
Alkaline Phosphatase Pending
Vital Signs:
Vital Signs
Temp Pulse Resp BP Pulse Ox
98.0 F 72 18 124/79 95
01/04/24 07:10 01/04/24 07:10 01/04/24 07:10 01/04/24 07:10 01/04/24 07:10
I&O
01/03/24 01/04/24 01/05/24
06:59 06:59 06:59
Intake Total 745 / 745 1595 / 1595
Balance 745 / 745 1595 / 1595
[2024-01-04 09:25] LABS: % Basophils 0.4 % (0-2); % Eosinophils 1.6 % (0-6); % Immature Granulocytes 0.4 % (0-0.5); % Lymphocytes 11.4 % (20.5-51.1); % Monocytes 5.2 % (1.7-9.3); Absolute Eosinophils 0.2 10^3/uL (0-0.7); Absolute Lymphocytes 1.1 10^3/uL (1.2-3.4); Absolute Monocytes 0.5 10^3/uL (0.1-0.6); Absolute Neutrophils 7.9 10^3/uL (1.4-6.5); Hematocrit 34.1 % (37.0-47.0); Hemoglobin 11.6 g/dL (12.0-16.0); Mean Corpuscular Hgb 28.9 pg (27.0-31.0); Mean Corpuscular Volume 84.8 fL (81.0-99.0); Mean Platelet Volume 10.9 fL (7.4-10.4); Nucleated Red Blood Cells % 0 %; Platelet Count 187 10^3/uL (130-400); Red Blood Cell Count 4.02 10^6/uL (4.20-5.40); Red Cell Dist. Width 15.6 % (11.5-14.5); White Blood Cell Count 9.7 10^3/uL (4.8-10.8)
[2024-01-04 09:51] LABS: ALT (SGPT) 164 U/L (0-35); AST (SGOT) 53 U/L (14-36); Albumin 3.3 g/dl (3.5-5.0); Alkaline Phosphatase 432 U/L (38-126); Blood Urea Nitrogen 15 mg/dl (7-17); Calcium 8.7 mg/dl (8.4-10.2); Carbon Dioxide 29 mmol/L (22-30); Chloride 106 mmol/L (98-107); Estimated Creatinine Clearance 117 ml/min; Glucose 131 mg/dl (70-99); Potassium 3.5 mmol/L (3.5-5.1); Sodium 145 mmol/L (135-145); Total Bilirubin 5.9 mg/dl (0.2-1.3); eGFR > 60.00
--- NOTE | 2024-01-04 12:19 | CM ---
Home when stable.
Plan; Home at discharge.
--- NOTE | 2024-01-04 13:12 | W.PN.UPDATE ---
Update Note
Progress Note Update
Discussed with Dr. Francis plan is to repeat ERCP tomorrow with cholangioscopy and attempt at EHL of stone in cystic take off.
[2024-01-04 15:04] VITALS: BP 149/89
--- NOTE | 2024-01-04 15:12 | W.PN.GS2 ---
Today's Communication / Plan
-
Rpt ERCP
Assessment / Plan
-
53F with choledocholithiasis PPD1 s/p ERCP with partial stone extraction
ERCP images reviewed, apparent relatively large stone at cystic takeoff, this would be very challenging to retrieve surgically
D/w GI, plan for rpt ERCP with lithotripsy
Defer diet to GI for now
Post procedure GS will evaluate and discuss lap nomi, timing TBD
Subjective Data
-
Date of Service: January 04, 2024
AFVSS, pain controlled, denies n/v
Objective Data
-
Intake and Output
01/03/24 01/04/24 01/05/24
06:59 06:59 06:59
Intake Total 745 / 745 1595 / 1595
Balance 745 / 745 1595 / 1595
Intake:
Oral fluids 120 / 120 720 / 720
IV fluids (Total) 525 / 525 775 / 775
lactated ringers 100 / 100
IV piggybacks 100 / 100 100 / 100
Other:
Number of approximated MODERATE 1 1
amounts of urine
Number of approximated LARGE 1
amounts of urine
Vital Signs
Temp Pulse Resp BP Pulse Ox
98.5 F 72 18 149/89 96
01/04/24 15:04 01/04/24 15:04 01/04/24 15:04 01/04/24 15:04 01/04/24 15:04
Lab Results
01/04/24 09:17
01/04/24 09:17
Calcium 8.7 mg/dl (8.4-10.2) 01/04/24 09:17
Total Bilirubin 5.9 mg/dl (0.2-1.3) H 01/04/24 09:17
Direct Bilirubin 6.2 mg/dl (0.0-0.4) H 01/03/24 05:35
AST 53 U/L (14-36) H 01/04/24 09:17
ALT 164 U/L (0-35) H 01/04/24 09:17
Alkaline Phosphatase 432 U/L (38-126) H 01/04/24 09:17
Total Protein 6.0 g/dl (6.3-8.2) L 01/04/24 09:17
Albumin 3.3 g/dl (3.5-5.0) L 01/04/24 09:17
Physical Exam
-
Gen: NAD
Abd: soft, mild ttp to RUQ/epigastrium
[2024-01-04] MEDS: D5LR 1000 IV (17:07)
--- NOTE | 2024-01-04 18:56 | CON.ID ---
Consultation
-
Date/Time Consultation Requested: 01/04/2024 0946
Date/Time Consultation Performed: 01/04/2024 1830
Requesting Provider: Dr. Landers
Performing Provider: Dr. Slater
Reason for Consultation: Suspected ascending cholangitis; acute choledocholithiasis
Chief Complaint / Past History
History of Present Illness
Deisy Carcamo is a 53-year-old female being evaluated at the request of Dr. Landers in regards to suspected ascending cholangitis. History is obtained from chart review, along with patient interview.
The patient has a significant past medical history only for asthma and reports that approximately 6 months ago she had a 2-day history of right upper quadrant discomfort. She thought it was an ulcer, and ultimately passed without issue.
Subsequently, approximately 5 days ago she began to have a return of her right upper quadrant discomfort with associated bloating. She also noted nausea and had 2 episodes of vomiting. She notes that the pain was somewhat intermittent but with
radiation to her back. She denied any fevers or chills. She admits decreased oral intake secondary to the nausea. Ultimately, the pain progressed to the point where she came to the emergency room for further evaluation. Just prior to admission,
she also noted some yellowing of her skin.
In the ER she was noted to have a marked leukocytosis, along with a markedly elevated bilirubin. She has been evaluated by Gastroenterology and yesterday underwent ERCP, but still has retained stones. Biliary purulence was noted. Stents have been
placed.
Currently she notes she is feeling much better. She notes marked decrease in pain.
Past History
Additional Past Medical History:
Asthma
Additional Past Surgical History:
Bilateral ankle surgery with hardware
Left neck cyst removal
Allergy History:
Penicillins Allergy (Verified 01/02/24 16:58)
Rash
Medications Reviewed: Yes
Current Antibiotics:
Ceftriaxone
Metronidazole
Social History
Tobacco: Smoker (1 pack/day)
Alcohol: None
Drug: None
Personal:
Living: With Family
Employment: Employed
Review of Systems
Vital Signs
Temp Pulse Resp BP Pulse Ox
98.5 F 72 18 149/89 96
01/04/24 15:04 01/04/24 15:04 01/04/24 15:04 01/04/24 15:04 01/04/24 15:04
Physical Exam
Physical Exam
Constitutional: No Acute Distress, Comfortable, Non-toxic and Obese
Head: Normocephalic
Eyes: Pupils Equal, Pupils Round, No Conjunctival Hemorrhage and Other (Mild scleral icterus)
Oral: No Thrush and No Ulcers
Cardiovascular: Regular Rate and S1/S2; Negative S3/S4
Pulmonary: Clear; Negative Wheezes, Rales or Rhonchi
Gastrointestinal: Soft, Non Tender, Non Distended, Normal Bowel Sounds, No Rebound and No Guarding
Genito-Urinary: Negative CVA Tenderness
Extremities: Negative Edema, Cyanosis or Erythema
Skin: Warm and Dry; Negative Rash or Jaundice
Neurological: Awake and Alert
Psychological: Calm
.
Lab / Diagnostic Study Results
01/04/24 09:17
01/04/24 09:17
Abs Immat Gran (auto) 0.0 10^3/uL (0-0.05) 01/04/24 09:17
Absolute Neuts (auto) 7.9 10^3/uL (1.4-6.5) H 01/04/24 09:17
Absolute Lymphs (auto) 1.1 10^3/uL (1.2-3.4) L 01/04/24 09:17
Absolute Monos (auto) 0.5 10^3/uL (0.1-0.6) 01/04/24 09:17
Absolute Basos (auto) 0.0 10^3/uL (0-0.2) 01/04/24 09:17
Immature Gran % 0.4 % (0-0.5) 01/04/24 09:17
Neutrophils % 81.0 % (42.2-75.2) H 01/04/24 09:17
Lymphocytes % 11.4 % (20.5-51.1) L 01/04/24 09:17
Monocytes % 5.2 % (1.7-9.3) 01/04/24 09:17
Eosinophils % 1.6 % (0-6) 01/04/24 09:17
Basophils % 0.4 % (0-2) 01/04/24 09:17
Microbiology Results
Imaging:
01/02/2024 CT abdomen/pelvis with IV contrast: Possible mild gallbladder wall thickening, and Lavon cholecystic fluid cannot be excluded. Findings are compatible with intrahepatic and extrahepatic biliary tract dilatation. No high attenuation focus
to confirm gallstone in the expected location of the distal common bile duct. Ultrasound may be more helpful. Please see full dictation for additional detail.
Assessment / Plan
Acute choledocholithiasis
Suspected ascending cholangitis
Leukocytosis; improved
Hyperbilirubinemia
Transaminitis
Hx asthma
Recommendations:
Continue with empiric ceftriaxone and metronidazole.
Await possible repeat ERCP.
If clinically remained stable, may be able to transition to oral cefdinir/metronidazole at time of discharge.
Will continue to monitor white count and temperature curve.
[2024-01-04] MEDS: STERILE WATER FOR INJECTION 20 ML IV (21:57)
[2024-01-04] MEDS: FLUSH (NSS) 2 FLUSH IV ×2 (21:57→22:03)
[2024-01-04] MEDS: ROCEPHIN 2000 MG IV (21:57)
[2024-01-04 23:02] VITALS: BP 147/91
[2024-01-05] VITALS (12 sets, daily range): BP systolic 143–191; BP diastolic 89–107
[2024-01-05] MEDS: D5LR 1000 IV ×2 (00:45→16:37)
[2024-01-05] MEDS: FLAGYL 500 MG 100 IV ×4 (00:53→23:35)
--- NOTE | 2024-01-05 11:51 | W.PN.HOSP.TC ---
Today's Communication/Plan
-
see bold
Assessment / Plan
Assessment / Plan
Gen: NAD, AAOx3.
Eyes: EOMI, PERRLA, mod scleral icterus.
Neck: supple.
CV: continues to remain RRR, +S1/S2, no m/r/g.
Resp: remains CTAB, no rales, wheezes, or rhonchi.
Abd: +BS, soft, NT, ND
Skin: intact, + jaundice
Neuro: CN 2-12 intact, non-focal.
Psych: Normal mood and affect.
CT A/P: Possible mild gallbladder wall thickening, cannot exclude some pericholecystic fluid. Findings compatible with intrahepatic and extrahepatic biliary tract dilatation, limited evaluation of overlapping extrahepatic biliary tract and limited
evaluation of pancreatic head without oral contrast opacification of duodenum. No high attenuation focus seen to confirm a gallstone in the expected location of the distal common bile duct. Ultrasound may be helpful for more complete evaluation. On
the basis of this study, small mass of the head of the pancreas or ampulla of Vater cannot be excluded.
RUQ U/S: Gallbladder with stone and sludge as well as wall thickening. Intrahepatic and extrahepatic biliary tract dilatation with FINDINGS SUSPICIOUS FOR COMMON BILE DUCT STONE. Negative sonographic Mari's sign. Complex hypoechoic area in the
right lobe of the liver adjacent to the gallbladder fossa which could represent a complex cyst, cannot exclude focal pericholecystic fluid. Consider surgical consultation. Visualized small portion of body of pancreas without gross focal abnormality.
ERCP 01/03/24: - The major papilla appeared to be small.
- A filling defect consistent with a stone was seen on
the cholangiogram
- The upper third of the main bile duct was mildly
dilated with large stone in cystic take off causing
mild obstruction suggestive of Mirrizzi's syndrome.
- Choledocholithiases were found. Partial removal was
accomplished with biliary sphincterotomy, the large
stone in cystic take off could not be removed due to
its size (larger than CBD); a stent was inserted.
- A biliary sphincterotomy was performed.
- The biliary tree was swept.
- The biliary tree was swept and debris/pus was found.
- One plastic stent was placed into the gallbladder.
- One plastic stent was placed into the common bile
duct.
Acute choledocholithiasis with acute ascending cholangitis:
-ERCP above, biliary sphincterotomy, biliary tree with pus, unable to remove choledocholithiasis at cystic take off, plastic stents in GB and CBD
-initially NPO with IVFs, now on clears after ERCP on 01/03/24
-surgery and GI following
-cont Rocephin/Flagyl as per ID
-Leukocytosis has resolved
-LFTs improving
-ERCP today with attempt at EHL of stone in cystic take off
Other problems:
Hypokalemia, resolved
Asthma: Not in acute exacerbation, cont PRN albuterol
Obesity due to excess calories: Affects all aspects of care, encourage weight loss
FULL/Lovenox
Anticipated Discharge: 24 - 48 hours
Subjective/Interval History
-
Date of Service: January 05, 2024
No new complaints. Denies abd pain.
Objective Data
-
Vital Signs:
Vital Signs
Temp Pulse Resp BP Pulse Ox
98 F 67 16 143/89 99
01/05/24 07:15 01/05/24 07:15 01/05/24 07:15 01/05/24 07:15 01/05/24 07:15
I&O
01/04/24 01/05/24 01/06/24
06:59 06:59 06:59
Intake Total 1595 / 1595 960 / 960
Balance 1595 / 1595 960 / 960
--- NOTE | 2024-01-05 15:53 | W.PN.ID1 ---
Date of Service
Date of Service: January 05, 2024
Today's Communication
Continue antibiotics. See below�
Assessment / Plan
Acute choledocholithiasis
Suspected ascending cholangitis
Leukocytosis; improving
Hyperbilirubinemia
Transaminitis
Hx asthma
Recommendations:
Continue with empiric ceftriaxone and metronidazole.
Await ERCP.
Patient remains clinically stable.
--> At discharge, transition to oral cefdinir 300 mg BID / metronidazole 500mg TID, to continue for an additional 5 days of therapy.
Will continue to monitor white count and temperature curve.
����������������������������������������������������������
Chief Complaint
-: Other (Ascending cholangitis)
Subjective / Review of Systems
Review of Systems: No Fever, No Chills and No Abdominal Pain
Vital Signs / Physical Exam
Vital Signs
Vital Signs
Temp Pulse Resp BP Pulse Ox
98.2 F 62 16 143/95 96
01/05/24 15:40 01/05/24 15:40 01/05/24 15:40 01/05/24 15:40 01/05/24 15:40
Physical Exam
Constitutional: No Acute Distress, Comfortable and Non-toxic
Eyes: Other (Mild scleral icterus)
Pulmonary: Non Labored
Gastrointestinal: Non Distended
Skin: Jaundice (Mild)
Neurological: Awake and Alert
Psychological: Calm
Objective Data
Lab Data
Lab Results
01/04/24 09:17
01/04/24 09:17
Estimated Creat Clear 117 ml/min 01/04/24 09:17
Total Bilirubin 5.9 mg/dl (0.2-1.3) H 01/04/24 09:17
AST 53 U/L (14-36) H 01/04/24 09:17
ALT 164 U/L (0-35) H 01/04/24 09:17
Alkaline Phosphatase 432 U/L (38-126) H 01/04/24 09:17
Most recent labs reviewed.
Imaging:
01/02/2024 CT abdomen/pelvis with IV contrast: Possible mild gallbladder wall thickening, and Lavon cholecystic fluid cannot be excluded. Findings are compatible with intrahepatic and extrahepatic biliary tract dilatation. No high attenuation focus
to confirm gallstone in the expected location of the distal common bile duct. Ultrasound may be more helpful. Please see full dictation for additional detail.
--- NOTE | 2024-01-05 16:01 | CM ---
Plan is home when stable.
Plan: Home no needs.
--- NOTE | 2024-01-05 16:56 | W.PN.GS2 ---
Today's Communication / Plan
-
Repeat ERCP today.
Assessment / Plan
-
53F with choledocholithiasis PPD2 s/p ERCP with partial stone extraction.
Appreciate GI, plan for repeat ERCP today
Diet per GI
General surgery will follow peripherally. Will consider cholecystectomy this admission if clinically warranted however patient fairly adamant on outpatient follow-up which she will schedule with Dr. Mittal.
Time Spent
Total Time Spent with Patient (in minutes): 20
Subjective Data
-
Date of Service: January 05, 2024
Interval Events:
No acute events overnight. Slept well. Pain Controlled. Denies Nausea/Vomiting. She is not interested in any surgery to remove her gallbladder this admission if she can avoid it.
Objective Data
-
Intake and Output
01/04/24 01/05/24 01/06/24
06:59 06:59 06:59
Intake Total 1595 / 1595 960 / 960
Balance 1595 / 1595 960 / 960
Intake:
Oral fluids 720 / 720 960 / 960
IV fluids (Total) 775 / 775
lactated ringers 100 / 100
IV piggybacks 100 / 100
Other:
Number of approximated MODERATE 1 2
amounts of urine
Number of approximated LARGE 1
amounts of urine
Vital Signs
Temp Pulse Resp BP Pulse Ox
98.2 F 62 16 143/95 96
01/05/24 15:40 01/05/24 15:40 01/05/24 15:40 01/05/24 15:40 01/05/24 15:40
Lab Results
01/04/24 09:17
01/04/24 09:17
Calcium 8.7 mg/dl (8.4-10.2) 01/04/24 09:17
Total Bilirubin 5.9 mg/dl (0.2-1.3) H 01/04/24 09:17
Direct Bilirubin 6.2 mg/dl (0.0-0.4) H 01/03/24 05:35
AST 53 U/L (14-36) H 01/04/24 09:17
ALT 164 U/L (0-35) H 01/04/24 09:17
Alkaline Phosphatase 432 U/L (38-126) H 01/04/24 09:17
Total Protein 6.0 g/dl (6.3-8.2) L 01/04/24 09:17
Albumin 3.3 g/dl (3.5-5.0) L 01/04/24 09:17
Physical Exam
-
GENERAL/NEURO: Awake, Alert, no distress
CHEST: Unlabored breathing on RA
ABDOMEN: Soft, Non-Tender, Non-Distended
EXTREMITIES: warm, well perfused, +jaundice, no cyanosis, no edema
--- NOTE | 2024-01-05 18:33 | PTCARENOTE ---
Pt received from prior RN. Currently not complaining of any ABD pain. Ox3 and appropriate, making needs known. No further changes in assessment.
[2024-01-05] MEDS: ZOFRAN 4 MG IV ×2 (19:49→23:47)
[2024-01-05] MEDS: TORADOL 10 MG IV (20:00)
--- NOTE | 2024-01-05 21:00 | PTCARENOTE ---
Pt received from PACU post MRCP. Pt arrived to room 434-02. Pt ambulated from stretcher to bed- no complaints of pain or nausea. Pt in bed resting comfortably.
[2024-01-05] MEDS: ROCEPHIN 2000 MG IV (21:03)
[2024-01-05] MEDS: STERILE WATER FOR INJECTION 20 ML IV (21:04)
[2024-01-05] MEDS: FLUSH (NSS) 2 FLUSH IV (21:05)
[2024-01-06 03:00] VITALS: BP 137/82
[2024-01-06] MEDS: FLUSH (NSS) IV (05:34)
[2024-01-06] MEDS: FLAGYL 500 MG 100 IV (07:22)
[2024-01-06 07:30] VITALS: BP 157/93
[2024-01-06 08:54] LABS: ALT (SGPT) 114 U/L (0-35); AST (SGOT) 51 U/L (14-36); Albumin 3.1 g/dl (3.5-5.0); Alkaline Phosphatase 553 U/L (38-126); Direct Bilirubin 2.1 mg/dl (0.0-0.4); Total Bilirubin 2.8 mg/dl (0.2-1.3); Total Protein 5.7 g/dl (6.3-8.2)
--- NOTE | 2024-01-06 10:02 | W.PN.GS2 ---
Today's Communication / Plan
-
Dispo planning
Assessment / Plan
-
53F with choledocholithiasis PPD3,1 ERCP x 2. Doing well
General surgery will sign off. No obstruction of cystic duct seen on procedural cholangiogram.
Patient is not interested in surgery this admission, she will follow-up with Dr. Mittal as an outpatient.
Time Spent
Total Time Spent with Patient (in minutes): 20
Subjective Data
-
Date of Service: January 06, 2024
Interval Events:
Successful ERCP yesterday with removal of all the stones in the biliary duct. No acute events overnight. Slept well. Pain Controlled. Denies Nausea/Vomiting, +bowel function. Tolerating diet.
Objective Data
-
Intake and Output
01/05/24 01/06/24 01/07/24
06:59 06:59 06:59
Intake Total 960 / 960 220 / 220
Output Total 400 / 400
Balance 960 / 960 -180 / -180
Intake:
Oral fluids 960 / 960 120 / 120
IV fluids (Total) 100 / 100
NSS 100 / 100
Output:
Urine, Voided 400 / 400
Other:
Number of approximated MODERATE 2 2
amounts of urine
Vital Signs
Temp Pulse Resp BP Pulse Ox
98.0 F 63 18 157/93 96
01/06/24 07:30 01/06/24 07:30 01/06/24 07:30 01/06/24 07:30 01/06/24 07:30
Lab Results
01/04/24 09:17
01/04/24 09:17
Calcium 8.7 mg/dl (8.4-10.2) 01/04/24 09:17
Total Bilirubin 2.8 mg/dl (0.2-1.3) H D 01/06/24 08:07
Direct Bilirubin 2.1 mg/dl (0.0-0.4) H 01/06/24 08:07
AST 51 U/L (14-36) H 01/06/24 08:07
ALT 114 U/L (0-35) H 01/06/24 08:07
Alkaline Phosphatase 553 U/L (38-126) H 01/06/24 08:07
Total Protein 5.7 g/dl (6.3-8.2) L 01/06/24 08:07
Albumin 3.1 g/dl (3.5-5.0) L 01/06/24 08:07
Physical Exam
-
GENERAL/NEURO: Awake, Alert, no distress
CHEST: Unlabored breathing on RA
ABDOMEN: Soft, Non-Tender, Non-Distended
--- NOTE | 2024-01-06 11:16 | W.PN.GI.CBS2 ---
Today's Communication / Plan
-
-- ok to discharge from GI perspective
-- should get repeat CMP, CBC outpatient in 1-2 wks to ensure improvement
-- any fever/chills/significant pain, patient should return to
-- nomi timing per surgery
-- started regular diet - would make sure she doesn't have significant pain before leaving
Assessment / Plan
-
The pt is a 53 yo female with a PMH significant for asthma, who presented to the ER with complaints of abdominal pain in the RUQ for the last 5 days with dark urine found to have jaundice, with CT/US findings along with LFT pattern consistent with
likely choledocholithiasis. CT report indicating cannot exclude underlying pancreatic lesion although with no noted pancreatic ductal dilation. She reports no unintentional weight loss with acute onset of symptoms this past week worsening
progressively with associated nausea and vomiting and loss of appetite. She continues with right upper quadrant/epigastric pain, somewhat improved with IV narcotics. Significantly elevated LFTs with a total bilirubin 8, AST 110, ALT 328, alk phos
537, with a normal lipase. She is n.p.o., started on IV antibiotics with Rocephin and Flagyl given her leukocytosis. She denies any fevers.
Problem list:
-RUQ/epigastric pain, CT/US findings concerning for choledocholithiasis with intra/extrahepatic ductal dilatation, GBW thickening, sludge, stone, ?liver cyst
-elevated LFT's
-jaundice
-leukocytosis
-CT showing subcentimeter low attenuation right renal lesion, few small non-specific retroperitoneal lymph nodes
-mild asthma, controlled
Recommendations:
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
-- Status post repeat ERCP with lithotripsy performed on 01/05/2024. The stone that impacted the cystic duct had migrated into the CBD. EHL/lithotripsy performed and removal of the stones. 2 stents were removed. No stents remain.
-LFTs are improving,
--Reviewed surgery's note. They will follow-up with her outpatient
-CT questioned possible pancreatic lesion, however, EUS was negative for pancreatic lesions
-PRN analgesics
Subjective
Subjective
Date of Service: January 06, 2024
denies abdominal pain/n/v - hasn't eaten yet today - on liquids now
Objective
Data Reviewed
Laboratory Data:
Laboratory Results
01/04/24 09:17
01/04/24 09:17
Laboratory Results
Total Bilirubin 2.8 mg/dl (0.2-1.3) H D 01/06/24 08:07
AST 51 U/L (14-36) H 01/06/24 08:07
ALT 114 U/L (0-35) H 01/06/24 08:07
Alkaline Phosphatase 553 U/L (38-126) H 01/06/24 08:07
Lipase 34 U/L (23-300) 01/02/24 17:04
Vital Signs and I&O:
Vital Signs
Temp Pulse Resp BP Pulse Ox
98.0 F 63 18 157/93 96
01/06/24 07:30 01/06/24 07:30 01/06/24 07:30 01/06/24 07:30 01/06/24 07:30
I&O
01/05/24 01/06/24 01/07/24
06:59 06:59 06:59
Intake Total 960 / 960 220 / 220
Output Total 400 / 400
Balance 960 / 960 -180 / -180
Physical Exam
Physical Exam
HEENT: Other (+icteric)
GI: Soft and Non Tender
--- NOTE | 2024-01-06 11:24 | CM ---
Home no needs when stable.
Plan; Home no needs.
--- NOTE | 2024-01-06 12:29 | W.PN.HOSP.TC ---
Today's Communication/Plan
-
see bold
Assessment / Plan
Assessment / Plan
Gen: NAD, AAOx3.
Eyes: EOMI, PERRLA, mod scleral icterus.
Neck: supple.
CV: continues to remain RRR, +S1/S2, no m/r/g.
Resp: remains CTAB, no rales, wheezes, or rhonchi.
Abd: +BS, soft, NT, ND
Skin: intact, + jaundice
Neuro: CN 2-12 intact, non-focal.
Psych: Normal mood and affect.
CT A/P: Possible mild gallbladder wall thickening, cannot exclude some pericholecystic fluid. Findings compatible with intrahepatic and extrahepatic biliary tract dilatation, limited evaluation of overlapping extrahepatic biliary tract and limited
evaluation of pancreatic head without oral contrast opacification of duodenum. No high attenuation focus seen to confirm a gallstone in the expected location of the distal common bile duct. Ultrasound may be helpful for more complete evaluation. On
the basis of this study, small mass of the head of the pancreas or ampulla of Vater cannot be excluded.
RUQ U/S: Gallbladder with stone and sludge as well as wall thickening. Intrahepatic and extrahepatic biliary tract dilatation with FINDINGS SUSPICIOUS FOR COMMON BILE DUCT STONE. Negative sonographic Mari's sign. Complex hypoechoic area in the
right lobe of the liver adjacent to the gallbladder fossa which could represent a complex cyst, cannot exclude focal pericholecystic fluid. Consider surgical consultation. Visualized small portion of body of pancreas without gross focal abnormality.
ERCP 01/03/24: - The major papilla appeared to be small.
- A filling defect consistent with a stone was seen on
the cholangiogram
- The upper third of the main bile duct was mildly
dilated with large stone in cystic take off causing
mild obstruction suggestive of Mirrizzi's syndrome.
- Choledocholithiases were found. Partial removal was
accomplished with biliary sphincterotomy, the large
stone in cystic take off could not be removed due to
its size (larger than CBD); a stent was inserted.
- A biliary sphincterotomy was performed.
- The biliary tree was swept.
- The biliary tree was swept and debris/pus was found.
- One plastic stent was placed into the gallbladder.
- One plastic stent was placed into the common bile
duct.
Acute choledocholithiasis with acute ascending cholangitis:
-ERCP 01/03/24 above, biliary sphincterotomy, biliary tree with pus, unable to remove choledocholithiasis at cystic take off, plastic stents in GB and CBD
-initially NPO with IVFs, now on clears after ERCP on 01/03/24
-cont Rocephin/Flagyl as per ID
-Leukocytosis has resolved
-LFTs improving
-s/p repeat ERCP with lithotripsy on 01/05/2024. Quoted from Dr. Tian's note, 'The stone that impacted the cystic duct had migrated into the CBD. EHL/lithotripsy performed and removal of the stones. 2 stents were removed. No stents remain.'
-surgery has signed off as pt is not interested in cholecystectomy during this hospitalization
-discussed with GI and RN
Other problems:
Hypokalemia, resolved
Asthma: Not in acute exacerbation, cont PRN albuterol
Obesity due to excess calories: Affects all aspects of care, encourage weight loss
FULL/Lovenox
Dispo: follow for abd pain after resuming diet. Check BMP/CBC. Cont IV abx. Not medically cleared for d/c today.
Total time spent on today's encounter was 50 minutes which included time spent in counseling the patient/family regarding diagnosis and treatment plan as listed above, goals of care, and symptom management. Case was discussed with nursing staff,
specialists, and care coordinators/case management. All labs and imaging personally reviewed by me. Remainder the time spent in detailed review of previous records, lab data, imaging, and other medical provider documentation.
Anticipated Discharge: Within 24 hours
Subjective/Interval History
-
Date of Service: January 06, 2024
Objective Data
-
Labs:
Laboratory Results
01/06/24
08:07
Total Bilirubin 2.8 H D
AST 51 H
ALT 114 H
Alkaline Phosphatase 553 H
Vital Signs:
Vital Signs
Temp Pulse Resp BP Pulse Ox
98.0 F 63 18 157/93 96
01/06/24 07:30 01/06/24 07:30 01/06/24 07:30 01/06/24 07:30 01/06/24 07:30
I&O
01/05/24 01/06/24 01/07/24
06:59 06:59 06:59
Intake Total 960 / 960 220 / 220
Output Total 400 / 400
Balance 960 / 960 -180 / -180
--- NOTE | 2024-01-06 12:35 | PTCARENOTE ---
GI surgery saw pt this am and signed off. Around 1100 Dr. Landers made aware that pt's only ride home for the day would be here soon and pt is adamant about leaving soon. Dr. Landers stated he was in a situation and he would be up as soon as he could be.
Pt made aware. By the time Dr Landers saw pt, he said it would still be 30 minutes to an hour to discharge pt, but pt's ride was here and she could not wait any longer. Pt left AMA at 1240. Dr. Landers made aware.
[2024-01-06 13:20] LABS: Blood Urea Nitrogen 10 mg/dl (7-17); Calcium 8.9 mg/dl (8.4-10.2); Carbon Dioxide 26 mmol/L (22-30); Chloride 105 mmol/L (98-107); Estimated Creatinine Clearance 117 ml/min; Glucose 121 mg/dl (70-99); Potassium 3.4 mmol/L (3.5-5.1); Sodium 143 mmol/L (135-145); eGFR > 60.00
--- NOTE | 2024-01-06 14:35 | W.DCSUMMARY ---
Discharge Summary
Discharge Data
Date of Admission: 01/02/24
Date of Discharge: 01/06/24
-
Pending Results: No
Hospital Course
Primary Diagnoses:
Acute choledocholithiasis with acute ascending cholangitis
Secondary Diagnoses:
Hypokalemia
Asthma
Obesity due to excess calories
Consultants:
Gastroenterology
General surgery
Imaging:
CT A/P: Possible mild gallbladder wall thickening, cannot exclude some pericholecystic fluid. Findings compatible with intrahepatic and extrahepatic biliary tract dilatation, limited evaluation of overlapping extrahepatic biliary tract and limited
evaluation of pancreatic head without oral contrast opacification of duodenum. No high attenuation focus seen to confirm a gallstone in the expected location of the distal common bile duct. Ultrasound may be helpful for more complete evaluation. On
the basis of this study, small mass of the head of the pancreas or ampulla of Vater cannot be excluded.
RUQ U/S: Gallbladder with stone and sludge as well as wall thickening. Intrahepatic and extrahepatic biliary tract dilatation with FINDINGS SUSPICIOUS FOR COMMON BILE DUCT STONE. Negative sonographic Mari's sign. Complex hypoechoic area in the
right lobe of the liver adjacent to the gallbladder fossa which could represent a complex cyst, cannot exclude focal pericholecystic fluid. Consider surgical consultation. Visualized small portion of body of pancreas without gross focal abnormality.
ERCP 01/03/24: - The major papilla appeared to be small.
- A filling defect consistent with a stone was seen on
the cholangiogram
- The upper third of the main bile duct was mildly
dilated with large stone in cystic take off causing
mild obstruction suggestive of Mirrizzi's syndrome.
- Choledocholithiases were found. Partial removal was
accomplished with biliary sphincterotomy, the large
stone in cystic take off could not be removed due to
its size (larger than CBD); a stent was inserted.
- A biliary sphincterotomy was performed.
- The biliary tree was swept.
- The biliary tree was swept and debris/pus was found.
- One plastic stent was placed into the gallbladder.
- One plastic stent was placed into the common bile
duct.
ERCP 01/05/24: - Two stents from the biliary tree were seen in the
major papilla.
- Erythema, hemorrhagic appearance, inflammation and
petechiae of the cystic duct mucosa was found.
- A filling defect consistent with a stone was seen on
the cholangiogram.
- The cystic duct was mildly dilated.
- The cystic duct was moderately dilated.
- Overall impression is a large stone which was
impacted at the cystic take off likely have migrated
out with indwelling stent into the CBD.
- Choledocholithiasis was found. EHL performed.
Complete removal was accomplished by biliary
sphincterotomy and balloon extraction.
- Two stents were removed from the biliary tree.
- Lithotripsy was successful.
- A biliary sphincterotomy was performed.
- Major papilla was successfully dilated.
- The biliary tree was swept.
Hospital course: 53-year-old female who presented with chief complaints of jaundice and right upper quadrant pain as outlined in the H&P done on admission. On admission the patient had elevated total bilirubin, AST, ALT, and alk phos. Lipase was
normal. She was afebrile and hemodynamically stable. She was initially n.p.o. and supported with IV fluids. She was placed on Rocephin and Flagyl. She underwent ERCP on 01/03/24 as above, notable for biliary sphincterotomy, biliary tree with pus,
unable to remove choledocholithiasis at cystic take off, plastic stents in GB and CBD. She underwent repeat ERCP with lithotripsy on 01/05/2024. Quoted from Dr. Tian's note, 'The stone that impacted the cystic duct had migrated into the CBD.
EHL/lithotripsy performed and removal of the stones. 2 stents were removed. No stents remain.' Patient's leukocytosis resolved. Her LFTs improved. General surgery saw the patient and signed off as patient was not interested in cholecystectomy
during this hospitalization. The patient left the hospital AGAINST MEDICAL ADVICE.
Discharge Plan
-
Patient Disposition: Against Medical Advice
Activity Restrictions/Additional Instructions:
Please call [phone] to schedule your follow-up with Dr. Mittal
Referrals:
Deonte Mittal MD [Active] -
UNKNOWN - PT DOES,NOT KNOW [Family Provider] -
Prescriptions:
No Action
albuterol sulfate 90 mcg/actuation Hfa Aerosol Inhaler
2 puff INHALATION R Q6HPRN PRN (Reason: sob)
ibuprofen-acetaminophen [Advil Dual Action] 125-250 mg Tablet
2 tab PO Q8HPRN PRN (Reason: mild pain)
Discharge Date and Time
Discharge Date/Time: 01/06/24 12:39
Print Language: SLOVENIAN
== END 2024-01-06 12:39 | disposition left against medical advice (07) | DRG 445 ==
LOC: 4 WEST ACU 22:19
PROVIDERS: Internal Medicine; Internal Medicine Gastroenterology; Physician Assistant; ADMITTING PHYSICIAN Internal Medicine; ATTENDING PHYSICIAN Internal Medicine; CONSULT PHYSICIAN Internal Medicine Gastroenterology; CONSULT PHYSICIAN Internal Medicine Infectious Disease; EMERGENCY PHYSICIAN Emergency Medicine; OTHER PHYSICIAN Surgery
PROC: 0F7D8DZ Dilation of Pancreatic Duct with Intraluminal Device, Via Natural or Artificial Opening Endoscopic (ICD-10-PCS; 2024-01-03)
PROC: 0F798DZ Dilation of Common Bile Duct with Intraluminal Device, Via Natural or Artificial Opening Endoscopic (ICD-10-PCS; 2024-01-03)
PROC: 0FPB8DZ Removal of Intraluminal Device from Hepatobiliary Duct, Via Natural or Artificial Opening Endoscopic (ICD-10-PCS; 2024-01-05)
PROC: 0FC88ZZ Extirpation of Matter from Cystic Duct, Via Natural or Artificial Opening Endoscopic (ICD-10-PCS; 2024-01-05)
DX: K80.50 Calculus of bile duct without cholangitis or cholecystitis without obstruction (principal); K92.2 Gastrointestinal hemorrhage, unspecified; R93.2 Abnormal findings on diagnostic imaging of liver and biliary tract; Z96.89 Presence of other specified functional implants; K83.9 Disease of biliary tract, unspecified; K82.8 Other specified diseases of gallbladder; Z46.59 Encounter for fitting and adjustment of other gastrointestinal appliance and device
CPT/HCPCS: 74177; 74330; 76000; 76700; 80053; 81003; 82248; 83690; 85025; 85027; 86704; 86706; 86708; 86803; 87340; 99285; C1726; C1769; C2617; C2625; Q9967

== ENCOUNTER 2024-01-19 17:58 | Emergency (ER) | payer BC, SELFPAY ==
[2024-01-19] VITALS (8 sets, daily range): BP systolic 109–140; BP diastolic 63–87; BMI 37.1
[2024-01-19 18:27] LABS: % Basophils 0.4 % (0-2); % Eosinophils 0.6 % (0-6); % Immature Granulocytes 0.5 % (0-0.5); % Lymphocytes 9.6 % (20.5-51.1); % Monocytes 6.6 % (1.7-9.3); % Neutrophils 82.3 % (42.2-75.2); Absolute Basophils 0.1 10^3/uL (0-0.2); Absolute Eosinophils 0.1 10^3/uL (0-0.7); Absolute Immature Granulocytes 0.1 10^3/uL (0-0.05); Absolute Lymphocytes 1.2 10^3/uL (1.2-3.4); Absolute Monocytes 0.8 10^3/uL (0.1-0.6); Absolute Neutrophils 10.2 10^3/uL (1.4-6.5); Hematocrit 36.1 % (37.0-47.0); Hemoglobin 11.8 g/dL (12.0-16.0); Mean Corp Hgb Conc. 32.7 g/dL (33.0-37.0); Mean Corpuscular Hgb 27.6 pg (27.0-31.0); Mean Corpuscular Volume 84.3 fL (81.0-99.0); Mean Platelet Volume 10.3 fL (7.4-10.4); Nucleated Red Blood Cells % 0 %; Platelet Count 313 10^3/uL (130-400); Red Blood Cell Count 4.28 10^6/uL (4.20-5.40); Red Cell Dist. Width 15.8 % (11.5-14.5); White Blood Cell Count 12.4 10^3/uL (4.8-10.8)
[2024-01-19 18:52] LABS: ALT (SGPT) 20 U/L (0-35); AST (SGOT) 19 U/L (14-36); Albumin 3.9 g/dl (3.5-5.0); Alkaline Phosphatase 170 U/L (38-126); Blood Urea Nitrogen 15 mg/dl (7-17); Calcium 9.2 mg/dl (8.4-10.2); Carbon Dioxide 26 mmol/L (22-30); Chloride 102 mmol/L (98-107); Estimated Creatinine Clearance 101 ml/min; Glucose 113 mg/dl (70-99); Lipase 51 U/L (23-300); Potassium 4.1 mmol/L (3.5-5.1); Sodium 135 mmol/L (135-145); Total Bilirubin 1.5 mg/dl (0.2-1.3); Total Protein 6.8 g/dl (6.3-8.2); eGFR > 60.00
--- NOTE | 2024-01-19 19:14 | ED.GENMED ---
History of Present Illness
General
Chief Complaint: Abdominal Pain
Source: patient
Exam Limitations: none
Time Seen by Provider: 01/19/24 18:41
History of Present Illness
History of Present Illness:
This is a 53 year old female that comes in with co right sided abd pain. States that she was here 2 weeks ago and she had blocked bile ducts. States that she was jaundice and they did an ERCP and broke up the stone. States that she was just calling
Dr. Walter today and then in the afternoon she started with pain. States that this felt different then the last time. States that the pain was more in the right lower abd and lasted for about 40 min and she got better. Then 2 hours later it started
to come back and has increased since that time. States that she feels SOB with the pain. Denies any fever, chills, chest pain, nausea, vomiting, diarrhea, headache, dizziness, urinary burning.
Past History
Past History
ED Past Medical History: Asthma and Other (Gallstones, ERCP)
ED Past Surgical History: and Orthopedic (Ankle surgery)
Social History
Tobacco: Smoker
Alcohol: None
Personal:
Living: alone
Review of Systems
Review of Systems
All Other Systems: ROS reviewed and negative except as documented in HPI and ROS
Constitutional: Reports no symptoms; Denies fever or chills
EENT: Reports no symptoms
Respiratory: Reports trouble breathing; Denies cough
Cardiac: Reports no symptoms; Denies chest pain
ABD/GI: Reports abdominal pain; Denies nausea, vomiting or diarrhea
: Reports no symptoms; Denies dysuria, frequency or urgency
Musculoskeletal: Reports no symptoms
Skin: Reports no symptoms
Neurological: Reports no symptoms; Denies dizzy or headache
Psychiatric: Reports no symptoms
Phy Exam
General Physical Exam
General Presentation: no apparent distress
General age: appears stated age
General Skin: warm and dry
General Habitus: normal
General Mental: alert
General Hydration: dry mucous membranes
ENT Exam
ENT Exam: TM's normal, pharynx normal and neck supple
Eye Exam
Eye Exam: EOMI
Cardiovascular Exam
Cardiovascular Exam: regular rate/rhythm, no edema and normal peripheral pulses
Pulmonary Exam
Pulmonary Exam: lungs clear, no respiratory distress, no rales, chest non tender, no crackles, no rhonchi, no wheezing and no cough
Gastrointestinal Exam
Gastrointestinal Exam: normal bowel sounds, soft, no organomegaly, no pulsatile mass, non distended and tender (right lateral mid abd tenderness with palpation)
Musculoskeletal Exam
Musculoskeletal Exam: full ROM and no edema
Skin Exam
Skin Exam: normal color, warm/dry, no rash and no petechia
Psychiatric Exam
Psychiatric Exam: normal mood/affect
Course
Orders/Labs/Results
Orders:
Orders
01/19/24 18:21
Complete Blood Count/With Diff Urgent
Comprehensive Metabolic Panel Urgent
Lipase Urgent
01/19/24 19:14
US Abdomen Complete/Upper Urgent
Comment:
Reason For Exam: Riht sided abd pain
01/19/24 20:17
Urinalysis Reflex To Culture Urgent
Date Specimen was Collected: 01/19/24
Time Specimen was Collected: 20:15
01/19/24 21:23
Ketorolac [Toradol] 15 mg .ROUTE .[facility] ONE
01/19/24 21:24
Ketorolac [Toradol] 15 mg IV NOW STA
Abnormal Lab Results
01/19/24
18:21
WBC 12.4 H 10^3/uL
(4.8-10.8)
Hgb 11.8 L g/dL
(12.0-16.0)
Hct 36.1 L %
(37.0-47.0)
MCHC 32.7 L g/dL
(33.0-37.0)
RDW 15.8 H %
(11.5-14.5)
Abs Immat Gran (auto) 0.1 H 10^3/uL
(0-0.05)
Absolute Neuts (auto) 10.2 H 10^3/uL
(1.4-6.5)
Absolute Monos (auto) 0.8 H 10^3/uL
(0.1-0.6)
Neutrophils % 82.3 H %
(42.2-75.2)
Lymphocytes % 9.6 L %
(20.5-51.1)
Glucose 113 H mg/dl
(70-99)
Total Bilirubin 1.5 H mg/dl
(0.2-1.3)
Alkaline Phosphatase 170 H U/L
(38-126)
01/19/24 18:21
01/19/24 18:21
Leukocytosis, H/H slightly low. Glucose nonfasting. Total anali elevation. Alk phos elevation. Lipase normal at 51
Vital Signs
Initial and Last Documented VS:
Initial Vital Signs
Temp Pulse Resp BP Pulse Ox
98.3 F 96 18 140/87 96
01/19/24 18:12 01/19/24 18:12 01/19/24 18:12 01/19/24 18:12 01/19/24 18:12
Last Documented Vital Signs
Temp Pulse Resp BP Pulse Ox
99.4 F 86 14 109/65 91
01/19/24 18:39 01/19/24 22:09 01/19/24 22:09 01/19/24 22:00 01/19/24 22:00
MDM/Problems Addressed
Differential Diagnosis Includes:
Gallbladder disease, appendicitis, Renal calculus
MDM/Problems Addressed:
This is a 53 year old female that comes in with c/o right side abd pain. States that this feels different then the last time when she had gallstones in the common bile duct. States that the pain is lower on the right side.
Will check labs, Urine, US and as needed CT scan.
Back into see patient. Reviewed labs and US. Patient to call Dr. Mittal office tomorrow and let them know that she was here in the emergency room. Patient states that she feels that she can go home. Will have patient use Advil with Tylenol. Patient
to return with fever, vomiting, increased or changing pain.
Chronic conditions affecting care:
Gallstones
Acute Exacerbation and/or Progression of Chronic Illness:
Gallstones
*Radiology
Radiology exam reviewed: radiology read reviewed (US-Gallstones, Gallbladder wall thickening and pericholecystic fluid. These findings can be seen with acute cholecystitis. Clinical and laboratory correlation recommended. This stone is new. The wall
thickening is stable. The pericholecystic fluid is decreased. MIld ascites. Stable. ) and other (US cont- Poor visualization of the pancreas and proximal IVS. )
*Pulse Oximetry
Patient hypoxic: no
*EKG
Interpreted by ED Provider?: NA
Rate: EKG- N/A
*Four Slide Operator Interpretation
Rate: Four Slide Operator- N/A
*Critical Care Note
Total Time (30-74mins, 75-104mins- exclusive of procedures): Not Applicable
ED Attending Note
-
Portions of this chart may have been created with voice recognition software.� Occasional wrong word or��sound alike� substitutions may have occurred due to the inherent limitations of voice recognition software.
Discharge Plan
Departure
Patient Disposition: Home (Routine Discharge)
Date of Disposition: 01/19/24
Time of Disposition: 22:32
Patient with high blood pressure during this ER visit?: No
Condition: Good
Covid-19: Not Applicable
Discharge Problem:
Right upper quadrant abdominal pain, Gallstones
Instructions: Gallstones (DC), Abdominal Pain
Prescriptions:
No Action
albuterol sulfate 90 mcg/actuation Hfa Aerosol Inhaler
2 puff INHALATION R Q6HPRN PRN (Reason: sob)
ibuprofen-acetaminophen [Advil Dual Action] 125-250 mg Tablet
2 tab PO Q8HPRN PRN (Reason: mild pain)
Referrals:
Deonte Mittal MD [Active] - Follow up in 2-3 days
UNKNOWN - PT DOES,NOT KNOW [Family Provider] -
Activity Restrictions/Additional Instructions:
As discussed, your blood work shows that your White blood cell count is slightly elevated. Your liver enzymes are normal. Your Ultrasound shows that there is a new gallstone but there is no ductal dilation or increased wall thickening. Please call
Dr. Mittal office tomorrow and let them know that you were here. Please use Tylenol or Ibuprofen for pain. IF YOU HAVE ANY FEVER, CHILLS, VOMITING, INCREASED OR CHANGING ABDOMINAL PAIN OR YOU HAVE ANY OTHER CONCERNS PLEASE RETURN TO THE EMERGENCY
ROOM.
Interventions
Interventions:
*Risk Screen - Suicide Last Done: 01/19/24 18:12
*General Assessment Last Done: 01/19/24 18:12
*Neglect/Abuse Screening Last Done: 01/19/24 18:12
ED- Fall Risk Assessment Last Done: 01/19/24 18:58
*ED COVID-19 Vaccine History Last Done: 01/19/24 18:40
PW-Yryggu-Vddlckbvqj Assessment Last Done: 01/19/24 18:40
Discharge Date and Time
Print Language: PAKISTANI
[2024-01-19 20:26] LABS: Urine Albumin Negative (Neg - Trace); Urine Bilirubin Negative (Negative); Urine Character Clear (Clear); Urine Color Yellow; Urine Glucose Negative (Negative); Urine Ketone Negative (Negative); Urine Leukocyte Negative (Negative); Urine Nitrite Negative (Negative); Urine Occult Blood Negative (Negative); Urine Urobilinogen Negative (Neg - 1+); Urine pH 6.5 (5.0-9.0)
[2024-01-19] MEDS: TORADOL 15 MG IV (21:25)
== END 2024-01-19 22:50 | disposition home or self-care (01) ==
LOC: EMR 17:58
PROVIDERS: Clinical Nurse Specialist Family Health; EMERGENCY PHYSICIAN Emergency Medicine
DX: K80.20 Calculus of gallbladder without cholecystitis without obstruction (principal); R10.11 Right upper quadrant pain; F17.200 Nicotine dependence, unspecified, uncomplicated
CPT/HCPCS: 99284; 96374; 76700; 80053; 81003; 83690; 85025

== ENCOUNTER 2024-01-24 18:41 | Inpatient (IN) | payer BC, SELFPAY ==
[2024-01-24] VITALS (7 sets, daily range): BP systolic 104–170; BP diastolic 74–105; BMI 36.9; BMI 35.7
--- NOTE | 2024-01-24 12:43 | ED.GENMED ---
ED Provider Triage
<Ciera Zurita PA-C - Last Filed: 01/24/24 12:51>
-
Patient seen by provider in Triage?: Seen in Triage
Attestation: A medical screening examination has been initiated by a qualified medical provider. Based on the assessment performed at this time, it has been determined that an emergent medical condition may exist and the patient has been informed
that further medical evaluation and possible additional diagnostic testing may be needed.
HPI: 53yoF here with RUQ pain radiating to back since yesterday. Also started to notice that her urine is dark/eyes are turning yellow today. No f/c. Admitted from 01/01-01/05 for choledocholithiasis and underwent ERCP with stent placement on 01/04.
Seen in ED on 01/18 for gallstones. Plan was for outpatient f/u with Dr. Mittal in 2 days to schedule cholecystectomy but pain is unbearable.
GENERAL: Alert , in no apparent distress
EYE: No visual abnormalities.
NECK: Trachea midline
ENT: No visible abnormalities.
LUNGS: No acute respiratory distress
NEUROLOGICAL: Alert and oriented
SKIN: Skin intact. No visible changes.
MUSCULOSKELETAL: Moving extremities normally
PSYCH: Normal and appropriate interaction.
This is a medical evaluation conducted in person to initiate diagnostic evaluation and provide initial therapeutics. Please see further documentation by the treating clinician.
Abdominal labs and upper abdominal ultrasound ordered.
History of Present Illness
<Ciera Zurita PA-C - Last Filed: 01/24/24 12:51>
General
Chief Complaint: Abdominal Pain
Time Seen by Provider: 01/24/24 15:34
<Bianka Hunt PA-C - Last Filed: 01/24/24 20:32>
General
Source: patient
Exam Limitations: none
Nursing documentation reviewed up to this point in time: agreed with
History of Present Illness
History of Present Illness:
53-year-old female with history choledocholithiasis, known gallstones presenting with upper abdominal pain. Patient reports right upper abdominal pain starting yesterday afternoon radiating around her right mid back. Pain has been constant. She
did have nausea and a few episodes of vomiting this morning. No fever, chills, diarrhea, or constipation. She does state that her urine seemed more yellow than usual.
Patient recently admitted with choledocholithiasis and stent placement with Dr. Francis 01/03/24. She was discharged and scheduled to see Dr. Mittal, general surgery, this due to her known gallstones and future cholecystectomy. Patient
presents today to the emergency department for intractable pain.
Past History
<Ciera Zurita PA-C - Last Filed: 01/24/24 12:51>
Past History
ED Past Medical History: Asthma and Other (Gallstones, ERCP)
ED Past Surgical History: and Orthopedic (Ankle surgery)
Social History
Tobacco: Smoker
Alcohol: None
Personal:
Living: alone
Review of Systems
<Bianka Hunt PA-C - Last Filed: 01/24/24 20:32>
Review of Systems
Allergies reviewed?: Yes
All Other Systems: ROS reviewed and negative except as documented in HPI and ROS
Phy Exam
<Bianka Hunt PA-C - Last Filed: 01/24/24 20:32>
Physical Exam
Physical Exam:
Vitals: Patient's vital signs are stable. Afebrile
General: Patient is well appearing, no acute distress. Jaundice
Skin: Warm and dry, no rashes or lesions
Head: Normocephalic, atraumatic
Eyes: EOMs intact. No nystagmus. Bilateral scleral icterus.
Throat: Protecting airway
Neck: Normal ROM, no cervical spine tenderness, no meningismus
Cardiac: Regular rate and rhythm, no murmurs.
Pulm: Normal respiratory effort, no wheezes, rales, rhonchi heard on exam.
Abdomen: Abdomen soft. Moderate right upper quadrant abdominal tenderness. Tenderness noted to right upper flank. No rebound tenderness or guarding. No CVA tenderness
Extremities: No evidence of cyanosis or edema. Great distal pulses
Neuro: AAOx3. CN II-XII intact. No focal neurologic deficits.
Psychiatric: Normal affect.
Course
<Ciera Zurita PA-C - Last Filed: 01/24/24 12:51>
Orders/Labs/Results
Orders:
Orders
01/24/24 12:45
US Abdomen Complete/Upper Urgent
Comment:
Reason For Exam: RUQ pain, jaundice
01/24/24 12:51
Basic Metabolic Panel Urgent
Complete Blood Count/With Diff Urgent
LFT [Ugqgw-Kbsk-Ajxetpd] Urgent
Lipase Urgent
01/24/24 16:01
0.9% Sodium Chloride 1000 ml [Nss] 1,000 ml IV BOLUS
Ketorolac [Toradol] 15 mg IV NOW STA
01/24/24 17:00
CefTRIAXone [Rocephin] 2,000 mg IV NOW STA
MetroNIDAZOLE 500 MG/100 ML [Flagyl 500 mg] 100 ml IV NOW
01/24/24 17:07
Sterile Water [Sterile Water For Injection] 20 ml .ROUTE .[facility]
01/24/24 17:20
MRI Abdomen [MR Abdomen W/o & W Contrast] Routine
Comment:
Reason For Exam: with MRCP
Recent pill cam endoscopy?: No
01/24/24 18:05
Admit/Transfer Patient As Directed
Co-Sign Provider:
Level of Care: Inpatient admission
Assign to:: Medical/Surgical
Physician / Group: Eric Waddell
Diagnosis: Choledocholithiais
Reason for Hospitalization: Choledocholithiais
Expected length of stay greater than two midnights?: Yes
ELOS- Estimated Length of Stay in days: 3
I certify the patient meets the requirements for IP care: Yes
PRN Pain Medication Management As Directed
May give lesser potent ordered pain med per pt: Yes
preference::
Protocol:: Medication orders for pain may be administered in a
manner that supports deferring to patient preference
when the pt is:
- Requesting an ordered lesser potent pain medication.
Least to most potent pain medications are defined
as: acetaminophen < NSAID < tramadol < opioids
(morphine, oxycodone, hydromorphone).
- Requesting a lesser dose of the same medication IF
ORDERED.
- Requesting a less intrusive route of administration
if both routes are prescribed by the provider (PO <
IV).
01/24/24 18:06
Code Status As Directed
Resuscitation Status: Do not resuscitate
Reached after discussion with pt or family/Healthcare POA: Yes
Decision communicated with: patient
DNR Bracelet Application ONCE
01/25/24 Breakfast
NPO
Allow oral meds: Yes
Allow clear liquids: 4hrs prior to procedure
Comment: may have unrestricted clear liquid up to 4 hrs prior to scheduled procedure
Comment: possible repeat ERCP
Abnormal Lab Results
01/24/24
12:51
RBC 4.19 L 10^6/uL
(4.20-5.40)
Hgb 11.6 L g/dL
(12.0-16.0)
Hct 35.6 L %
(37.0-47.0)
MCHC 32.6 L g/dL
(33.0-37.0)
RDW 15.1 H %
(11.5-14.5)
MPV 10.8 H fL
(7.4-10.4)
Absolute Neuts (auto) 7.7 H 10^3/uL
(1.4-6.5)
Absolute Lymphs (auto) 0.8 L 10^3/uL
(1.2-3.4)
Neutrophils % 84.2 H %
(42.2-75.2)
Lymphocytes % 8.5 L %
(20.5-51.1)
Creatinine 0.5 L mg/dL
(0.6-1.0)
Glucose 128 H mg/dl
(70-99)
Total Bilirubin 4.6 H mg/dl
(0.2-1.3)
Direct Bilirubin 3.8 H mg/dl
(0.0-0.4)
AST 244 H U/L
(14-36)
ALT 225 H U/L
(0-35)
Alkaline Phosphatase 736 H U/L
(38-126)
01/24/24 12:51
01/24/24 12:51
Vital Signs
Initial and Last Documented VS:
Initial Vital Signs
Temp Pulse Resp BP Pulse Ox
98.5 F 78 16 163/101 98
01/24/24 12:40 01/24/24 12:40 01/24/24 12:40 01/24/24 12:40 01/24/24 12:40
Last Documented Vital Signs
Temp Pulse Resp BP Pulse Ox
98.5 F 77 18 139/78 97
01/24/24 12:40 01/24/24 16:31 01/24/24 16:31 01/24/24 16:50 01/24/24 18:15
<Bianka Hunt PA-C - Last Filed: 01/24/24 20:32>
Orders/Labs/Results
Orders:
Orders
01/24/24 12:45
US Abdomen Complete/Upper Urgent
Comment:
Reason For Exam: RUQ pain, jaundice
01/24/24 12:51
Basic Metabolic Panel Urgent
Complete Blood Count/With Diff Urgent
LFT [Khwqb-Xxia-Mnixfmt] Urgent
Lipase Urgent
01/24/24 16:01
0.9% Sodium Chloride 1000 ml [Nss] 1,000 ml IV BOLUS
Ketorolac [Toradol] 15 mg IV NOW STA
01/24/24 17:00
CefTRIAXone [Rocephin] 2,000 mg IV NOW STA
MetroNIDAZOLE 500 MG/100 ML [Flagyl 500 mg] 100 ml IV NOW
01/24/24 17:07
Sterile Water [Sterile Water For Injection] 20 ml .ROUTE .[facility]
01/24/24 17:20
MRI Abdomen [MR Abdomen W/o & W Contrast] Routine
Comment:
Reason For Exam: with MRCP
Recent pill cam endoscopy?: No
01/24/24 18:05
Admit/Transfer Patient As Directed
Co-Sign Provider:
Level of Care: Inpatient admission
Assign to:: Medical/Surgical
Physician / Group: Eric Waddell
Diagnosis: Choledocholithiais
Reason for Hospitalization: Choledocholithiais
Expected length of stay greater than two midnights?: Yes
ELOS- Estimated Length of Stay in days: 3
I certify the patient meets the requirements for IP care: Yes
PRN Pain Medication Management As Directed
May give lesser potent ordered pain med per pt: Yes
preference::
Protocol:: Medication orders for pain may be administered in a
manner that supports deferring to patient preference
when the pt is:
- Requesting an ordered lesser potent pain medication.
Least to most potent pain medications are defined
as: acetaminophen < NSAID < tramadol < opioids
(morphine, oxycodone, hydromorphone).
- Requesting a lesser dose of the same medication IF
ORDERED.
- Requesting a less intrusive route of administration
if both routes are prescribed by the provider (PO <
IV).
01/24/24 18:06
Code Status As Directed
Resuscitation Status: Do not resuscitate
Reached after discussion with pt or family/Healthcare POA: Yes
Decision communicated with: patient
DNR Bracelet Application ONCE
01/25/24 Breakfast
NPO
Allow oral meds: Yes
Allow clear liquids: 4hrs prior to procedure
Comment: may have unrestricted clear liquid up to 4 hrs prior to scheduled procedure
Comment: possible repeat ERCP
Abnormal Lab Results
01/24/24
12:51
RBC 4.19 L 10^6/uL
(4.20-5.40)
Hgb 11.6 L g/dL
(12.0-16.0)
Hct 35.6 L %
(37.0-47.0)
MCHC 32.6 L g/dL
(33.0-37.0)
RDW 15.1 H %
(11.5-14.5)
MPV 10.8 H fL
(7.4-10.4)
Absolute Neuts (auto) 7.7 H 10^3/uL
(1.4-6.5)
Absolute Lymphs (auto) 0.8 L 10^3/uL
(1.2-3.4)
Neutrophils % 84.2 H %
(42.2-75.2)
Lymphocytes % 8.5 L %
(20.5-51.1)
Creatinine 0.5 L mg/dL
(0.6-1.0)
Glucose 128 H mg/dl
(70-99)
Total Bilirubin 4.6 H mg/dl
(0.2-1.3)
Direct Bilirubin 3.8 H mg/dl
(0.0-0.4)
AST 244 H U/L
(14-36)
ALT 225 H U/L
(0-35)
Alkaline Phosphatase 736 H U/L
(38-126)
01/24/24 12:51
01/24/24 12:51
Vital Signs
Initial and Last Documented VS:
Initial Vital Signs
Temp Pulse Resp BP Pulse Ox
98.5 F 78 16 163/101 98
01/24/24 12:40 01/24/24 12:40 01/24/24 12:40 01/24/24 12:40 01/24/24 12:40
Last Documented Vital Signs
Temp Pulse Resp BP Pulse Ox
98.5 F 77 18 139/78 97
01/24/24 12:40 01/24/24 16:31 01/24/24 16:31 01/24/24 16:50 01/24/24 18:15
<Bianka Hunt PA-C - Last Filed: 01/24/24 20:32>
MDM/Problems Addressed
Differential Diagnosis Includes:
Not limited to: biliary colic, choledocholithiasis, cholecystitis, cholangitis, pancreatitis, etc.
MDM/Problems Addressed:
53-year-old female with history as documented presenting with persistent right upper quadrant abdominal pain associated with nausea/vomiting. No fevers or chills. No urinary symptoms. No chest pain or shortness of breath. Hypertensive on
arrival, otherwise vital signs stable. She is afebrile. Physical exam as above. Workup was initiated in triage including basic labs and abdominal ultrasound. No leukocytosis. LFTs noted with show an obstructive pattern all significantly
elevated from visit 6 days prior. Lipase is normal. Abdominal ultrasound noted which shows choledocholithiasis with an obstructing calculus in the CBD in addition to a fluid collection suspicious for biloma/leak. Patient given Toradol, fluids.
Discussed case with both gastroenterology and general surgery. Patient will be admitted to hospitalist service with GI consult for ERCP. Plan for surgery consult tomorrow for possible cholecystectomy during admission. Patient given IV
Rocephin/Flagyl in emergency department. Patient admitted to hospital service in stable condition.
Chronic conditions affecting care:
Choledocholithiasis, cholelithiasis
Acute Exacerbation and/or Progression of Chronic Illness:
Choledocholithiasis, cholelithiasis
<Bianka Hunt PA-C - Last Filed: 01/24/24 20:32>
*Radiology
Radiology exam reviewed: radiology read reviewed
*Pulse Oximetry
Patient hypoxic: no
*EKG
Interpreted by ED Provider?: NA
*Ore Fielder Interpretation
Rate: Ore Fielder- N/A
*Critical Care Note
Total Time (30-74mins, 75-104mins- exclusive of procedures): Not Applicable
<Bianka Hunt PA-C - Last Filed: 01/24/24 20:32>
Patient Management
Discussion with other providers: Hospitalist and [employer] (Gastroenterology- Dr. Garland, General surgery - Dr. Dallas)
Escalation/DeEscalation of care consider admission/obs:
Admit for ERCP with GI/possible cholecystectomy
ED Attending Note
<Ciera Zurita PA-C - Last Filed: 01/24/24 12:51>
-
Portions of this chart may have been created with voice recognition software.� Occasional wrong word or��sound alike� substitutions may have occurred due to the inherent limitations of voice recognition software.
Discharge Plan
Departure
Patient Disposition: Admit
Date of Disposition: 01/24/24
Time of Disposition: 17:09
Presentation/result/management discussed w/ accepting MD/DO: Hospitalist
Discharge Problem:
Choledocholithiasis, Cholelithiasis
Interventions
Interventions:
*Risk Screen - Suicide Last Done: 01/24/24 12:40
*General Assessment Last Done: 01/24/24 12:40
*Neglect/Abuse Screening Last Done: 01/24/24 12:40
ED- Fall Risk Assessment Last Done: 01/24/24 16:31
*Nursing Disposition Last Done: 01/24/24 20:05
GC-Dhzywe-Vrfcwelysp Assessment Last Done: 01/24/24 16:31
Discharge Date and Time
Discharge Date/Time: 01/24/24 20:06
[2024-01-24 13:01] LABS: % Basophils 0.5 % (0-2); % Eosinophils 0.8 % (0-6); % Immature Granulocytes 0.3 % (0-0.5); % Lymphocytes 8.5 % (20.5-51.1); % Monocytes 5.7 % (1.7-9.3); % Neutrophils 84.2 % (42.2-75.2); Absolute Basophils 0.1 10^3/uL (0-0.2); Absolute Eosinophils 0.1 10^3/uL (0-0.7); Absolute Lymphocytes 0.8 10^3/uL (1.2-3.4); Absolute Monocytes 0.5 10^3/uL (0.1-0.6); Absolute Neutrophils 7.7 10^3/uL (1.4-6.5); Hematocrit 35.6 % (37.0-47.0); Hemoglobin 11.6 g/dL (12.0-16.0); Mean Corp Hgb Conc. 32.6 g/dL (33.0-37.0); Mean Corpuscular Hgb 27.7 pg (27.0-31.0); Mean Platelet Volume 10.8 fL (7.4-10.4); Nucleated Red Blood Cells % 0 %; Platelet Count 307 10^3/uL (130-400); Red Blood Cell Count 4.19 10^6/uL (4.20-5.40); Red Cell Dist. Width 15.1 % (11.5-14.5); White Blood Cell Count 9.2 10^3/uL (4.8-10.8)
[2024-01-24 13:13] LABS: ALT (SGPT) 225 U/L (0-35); AST (SGOT) 244 U/L (14-36); Albumin 3.9 g/dl (3.5-5.0); Alkaline Phosphatase 736 U/L (38-126); Blood Urea Nitrogen 10 mg/dl (7-17); Calcium 9.4 mg/dl (8.4-10.2); Carbon Dioxide 27 mmol/L (22-30); Chloride 105 mmol/L (98-107); Direct Bilirubin 3.8 mg/dl (0.0-0.4); Glucose 128 mg/dl (70-99); Lipase 33 U/L (23-300); Potassium 4.4 mmol/L (3.5-5.1); Sodium 141 mmol/L (135-145); Total Bilirubin 4.6 mg/dl (0.2-1.3); Total Protein 7.1 g/dl (6.3-8.2); eGFR > 60.00
[2024-01-24] MEDS: NSS 1000 IV (16:24)
[2024-01-24] MEDS: TORADOL 15 MG IV (16:24)
--- NOTE | 2024-01-24 16:26 | CON.GI ---
Addendum entered and electronically signed by Checo Garland MD 01/24/24 17:58:
I saw and examined the patient.
The RIDING DOUBLE or PA's note was reviewed and I agree with the note.
Comment: 53yo female presents with abd pain. She was admitted earlier this month with CBD stones. EUS 01/02 showed stone in CBD that was removed in addition to large stone in cystic duct that was not removed, stent was placed, and plans were made
for lithotripsy. She had ERCP with EHL on 01/04 with destruction and removal of large stone and removal of stents. After d/c plans were made for OP cholecystectomy as pt did not wish cholecystectomy during that admission. She presented to ER with
abd pain 01/18 and US showed gallstones and 1cm CBD. LFTs were normal. Now presents with recurrent pain. LFTs elevated TB 4.6, AST 244, ALT 225. US shows GBWT 4.6mm, fluid collection adjacent to GB 6.4 x 1.7 x 3.7cm, and 10mm calculus in distal
CBD, which is dilated to 8mm.
REC:
Check MRI/MRCP to better define fluid collection adjacent to GB and confirm CBD stone, which probably fell into bile duct after ERCP earlier this month.
Plan ERCP pending MRI
Surgery consult for cholecystectomy this admission
Original Note:
Consultation
-
Date/Time Consultation Requested: 01/24/24 163
Date/Time Consultation Performed: 01/24/24 1630
Requesting Provider: Bianka Hunt PA-C
Performing Provider: WILLIAM Langley, Checo Garland MD
Reason for Consultation: increased LFT's, abdominal pain
Medical History
Chief Complaint / HPI
Chief Complaint: jaundice, RUQ pain
History of Present Illness:
The pt is a 53 yo female with a PMH significant for asthma, with recent admission to 01/02/24- 01/06/24 with choledocholithiasis and cholangitis.During that admission she completed 2 ERCP's. Initially with large stone in cystic duct take off
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 Biliary tree with swept for debris and pus with stent in gallbladder
and CBD. She repeat ERCP 01/04 with erythema hemorrhagic, inflammation and petechiae with migration of large stone impacted in cystic duct migrated with indwelling stent in CBD -- EHL completed with sphincterotomy and balloon extraction with removal
of stents. She returned with pain 01/18 with improved LFT's and US noted GBWT and fluid and acute cholecystis stone is new in gallbladder with decreased pericholecystitis fluid and mild ascites. She was discharged. She now return again with
pain but now recurrent rise in LFT's with bili 4.6 AST 244, ALT 225, alk phos 736. Repeat US with concern for choledocholithiasis with 1 cm obstructing calculus in distal CBD and 6.4 cm lobular fluid collection adjacent to GB suspicious for biloma
and leak.
At this time patient admits to mid abdominal pain along with vomiting but no GERD, diarrhea, constipation, or rectal bleeding.
Past Medical History
Past Medical History: Asthma and Other (choledocholithiasis s/p ERCP x 2 with cystic duct/CBD stone s/p stents with removal and with EHL)
Past Surgical History: , Orthopedic (Bilateral ankle surgery with plates and pins after trauma) and Other (Cyst excision from her neck)
Social History
Tobacco: Smoker (<1 PPD for 40 years)
Alcohol: None
Drug: None
Employment: Employed
Family History
Family History: Cancer (father-throat cancer)
Allergies / Home Medications
Allergy/AdvReac Type Severity Reaction Status Date / Time
Penicillins Allergy Rash Verified 01/24/24 12:40
�Medication �Instructions �Recorded
albuterol sulfate 90 mcg/actuation 2 puff inhalation R Q6HPRN PRN sob 01/02/24
aerosol inhaler
ibuprofen 125 mg-acetaminophen 250 2 tab PO Q8HPRN PRN mild pain 01/02/24
mg tablet (Advil Dual Action)
Review of Systems
-
History Source: Patient
Constitutional: Reports No Symptoms
EENT: Reports No Symptoms
Respiratory: Reports No Symptoms
Cardiac: Reports No Symptoms
Abdomen/GI: Reports Abdominal Pain, Nausea and Vomiting
: Reports Other (bright yellow urine )
Musculoskeletal: Reports No Symptoms
Skin: Reports Other (Jaundice)
Neurological: Reports No Symptoms
Endocrine: Reports No Symptoms
Hematologic/Lymphatic: Reports No Symptoms
Vital Signs
Temp Pulse Resp BP Pulse Ox
98.5 F 77 16 170/104 97
01/24/24 12:40 01/24/24 15:26 01/24/24 15:26 01/24/24 15:26 01/24/24 15:26
Physical Exam
Exam
General: Well Developed, Well Nourished, No Apparent Distress and Other (Jaundice)
HEENT: Normocephalic and Other (B/L scleral icterus)
Respiratory: Clear
Cardiac: S1/S2 and Regular Rhythm
Breast: Deferred by me
GI: Soft, Non Distended, Normal Bowel Sounds and Tender (epigastric mid abdominal tenderness )
Rectal: Deferred by Provider
Musculoskeletal: No Edema
Skin: Warm and Dry
Neuro: Awake, Alert and Oriented
Psych: Calm
Results
WBC 9.2 10^3/uL (4.8-10.8) 01/24/24 12:51
Hgb 11.6 g/dL (12.0-16.0) L 01/24/24 12:51
Hct 35.6 % (37.0-47.0) L 01/24/24 12:51
MCV 85.0 fL (81.0-99.0) 01/24/24 12:51
Plt Count 307 10^3/uL (130-400) 01/24/24 12:51
Absolute Neuts (auto) 7.7 10^3/uL (1.4-6.5) H 01/24/24 12:51
Sodium 141 mmol/L (135-145) 01/24/24 12:51
Potassium 4.4 mmol/L (3.5-5.1) 01/24/24 12:51
Chloride 105 mmol/L (98-107) 01/24/24 12:51
Carbon Dioxide 27 mmol/L (22-30) 01/24/24 12:51
BUN 10 mg/dl (7-17) 01/24/24 12:51
Creatinine 0.5 mg/dL (0.6-1.0) L 01/24/24 12:51
Calcium 9.4 mg/dl (8.4-10.2) 01/24/24 12:51
Total Bilirubin 4.6 mg/dl (0.2-1.3) H 01/24/24 12:51
AST 244 U/L (14-36) H 01/24/24 12:51
ALT 225 U/L (0-35) H 01/24/24 12:51
Alkaline Phosphatase 736 U/L (38-126) H 01/24/24 12:51
Lipase 33 U/L (23-300) 01/24/24 12:51
Diagnostic Image Results:
01/02/24 CT A/P: Possible mild gallbladder wall thickening, cannot exclude some pericholecystic fluid. Findings compatible with intrahepatic and extrahepatic biliary tract dilatation, limited evaluation of overlapping extrahepatic biliary tract and
limited evaluation of pancreatic head without oral contrast opacification of duodenum. No high attenuation focus seen to confirm a gallstone in the expected location of the distal common bile duct. Ultrasound may be helpful for more complete
evaluation. On the basis of this study, small mass of the head of the pancreas or ampulla of Vater cannot be excluded.
01/02/24 RUQ U/S: Gallbladder with stone and sludge as well as wall thickening. Intrahepatic and extrahepatic biliary tract dilatation with FINDINGS SUSPICIOUS FOR COMMON BILE DUCT STONE. Negative sonographic Mari's sign. Complex hypoechoic area
in the right lobe of the liver adjacent to the gallbladder fossa which could represent a complex cyst, cannot exclude focal pericholecystic fluid. Consider surgical consultation. Visualized small portion of body of pancreas without gross focal
abnormality.
01/19/24 - US abdomen
Gallstone, gallbladder wall thickening and pericholecystic fluid. These findings can be seen with acute cholecystitis. Clinical and laboratory correlation recommended. This stone is new in gallbladder. The wall thickening is stable. The
pericholecystic fluid is decreased.
Mild ascites. Stable
Poor visualization of the pancreas and proximal IVC
01/24/24 US abdomen
There is choledocholithiasis with a 1 cm obstructing calculus in the distal common bile duct and a 6.4 cm lobular fluid collection adjacent to the gallbladder which is high-level suspicion for biloma/leak.
ERCP 01/03/24: - The major papilla appeared to be small.
- A filling defect consistent with a stone was seen on
the cholangiogram
- The upper third of the main bile duct was mildly
dilated with large stone in cystic take off causing
mild obstruction suggestive of Mirrizzi's syndrome.
- Choledocholithiases were found. Partial removal was
accomplished with biliary sphincterotomy, the large
stone in cystic take off could not be removed due to
its size (larger than CBD); a stent was inserted.
- A biliary sphincterotomy was performed.
- The biliary tree was swept.
- The biliary tree was swept and debris/pus was found.
- One plastic stent was placed into the gallbladder.
- One plastic stent was placed into the common bile
duct.
ERCP 01/05/24: - Two stents from the biliary tree were seen in the
major papilla.
- Erythema, hemorrhagic appearance, inflammation and
petechiae of the cystic duct mucosa was found.
- A filling defect consistent with a stone was seen on
the cholangiogram.
- The cystic duct was mildly dilated.
- The cystic duct was moderately dilated.
- Overall impression is a large stone which was
impacted at the cystic take off likely have migrated
out with indwelling stent into the CBD.
- Choledocholithiasis was found. EHL performed.
Complete removal was accomplished by biliary
sphincterotomy and balloon extraction.
- Two stents were removed from the biliary tree.
- Lithotripsy was successful.
- A biliary sphincterotomy was performed.
- Major papilla was successfully dilated.
- The biliary tree was swept.
Assessment / Plan
-
The pt is a 53 yo female with a PMH significant for asthma, with recent admission to 01/02/24- 01/06/24 with choledocholithiasis and cholangitis.During that admission she completed 2 ERCP's. Initially with large stone in cystic duct take off
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 Biliary tree with swept for debris and pus with stent in gallbladder
and CBD. She repeat ERCP 01/04 with erythema hemorrhagic, inflammation and petechiae with migration of large stone impacted in cystic duct migrated with indwelling stent in CBD -- EHL completed with sphincterotomy and balloon extraction with removal
of stents. She returned with pain 01/18 with improved LFT's and US noted GBWT and fluid and acute cholecystis stone is new in gallbladder with decreased pericholecystitis fluid and mild ascites. She was discharged. She now return again with
pain but now recurrent rise in LFT's with bili 4.6 AST 244, ALT 225, alk phos 736. Repeat US with concern for choledocholithiasis with 1 cm obstructing calculus in distal CBD and 6.4 cm lobular fluid collection adjacent to GB suspicious for biloma
and leak.
-abdominal pain with recurrent rise in LFT's
-Us with concern for choledocholithiasis with 1 cm obstructing calculus in distal CBD and 6.4 cm lobular fluid collection adjacent to GB suspicious for biloma and leak
-recent ERCP x 2 with CBD stone and impacted cystic duct stone with migration s/p EHL then stent removal
other med problems:
-hx asthma
-
-ankle surgery
PLAN:
Etiology of recurrent pain with concern for recurrent CBD stone vs biloma vs other
will review with Dr. Garland for MRI/MRCP
NPO
will need surgical eval for nomi-- she was due to seen Dr. Mittal this week to review
trend LFT's
cont abx
NPO in AM if need to proceed with repeat ERCP
will follow
-
-
Thank you for consultation and allowing me to participate in the patient's care. Please call the clinical information systems director GI physician during the after hours with any questions or concerns.
[2024-01-24] MEDS: FLAGYL 500 MG 100 IV (17:07)
[2024-01-24] MEDS: ROCEPHIN 2000 MG IV (17:07)
--- NOTE | 2024-01-24 17:32 | HPS.HSE ---
Family Physician
-
Family Physician: * NONE
Chief Complaint
-
Abdominal pain
History of Present Illness
Patient is a 53-year-old female with PMH choledocholithiasis and asthma. Patients reports she reported to [place] ED this morning for evaluation of abdominal pain to RUQ with radiation to the back, this was associated with nausea and vomiting
overnight. She denies fevers, chills, chest pain, shortness of breath, constipation, diarrhea, or urinary symptoms. She was recently admitted her for same presenting symptoms where workup showed choledocholithiasis. ERCP competed with stents placed.
A repeat ERCP with lithotripsy performed for removal of stones. During this stay patient denied cholecystectomy. She returned today with similar symptoms and now states she is interested in cholecystectomy.
Medical History
Past Medical History
Past Medical History: Reports Other
Additional Past Medical History:
Hypokalemia
Asthma
Obesity due to excess calories
Past Surgical History: Reports Other
Additional Past Surgical History:
orthopedics b/l ankles
Social History
Tobacco: Smoker (less than pack per day)
Alcohol: None
Drug: None
Personal:
Living: With Family
Employment: Employed
Family History
Family History: Not pertinent
Allergies / Home Medications
Allergies reflects when Allergies were last updated in [employer].
Home Medications with original date entered in [employer]
Allergy/Medication List:
Allergies
Allergy/AdvReac Type Severity Reaction Status Date / Time
Penicillins Allergy Rash Verified 01/24/24 12:40
Home Medications Table - record
�Medication �Instructions �Recorded �Confirmed
albuterol sulfate 90 mcg/actuation 2 puff inhalation R Q6HPRN PRN sob 01/02/24 01/24/24
aerosol inhaler
ibuprofen 125 mg-acetaminophen 250 2 tab PO Q8HPRN PRN mild pain 01/02/24 01/24/24
mg tablet (Advil Dual Action)
Review of Systems
-
History Source: Patient
Constitutional: Reports No Symptoms
EENT: Reports No Symptoms
Respiratory: Reports No Symptoms
Cardiac: Reports No Symptoms
Abdomen/GI: Reports Abdominal Pain, Nausea and Vomiting
: Reports No Symptoms
Musculoskeletal: Reports No Symptoms
Skin: Reports No Symptoms
Neurological: Reports No Symptoms
Endocrine: Reports No Symptoms
Hematologic/Lymphatic: Reports No Symptoms
Psych: Reports No Symptoms
Physical Exam
Vital Signs
Vital Signs
Temp Pulse Resp BP Pulse Ox
98.5 F 77 18 104/84 98
01/24/24 12:40 01/24/24 16:31 01/24/24 16:31 01/24/24 16:31 01/24/24 16:31
Physical Exam
General: Well Developed, Well Nourished, No Apparent Distress, Comfortable and Conversant
HEENT: NormoCephalic, Moist mucous membranes, Atraumatic, PERRLA, [place] Conjunctivae, Nose Appears Normal and Ears Appear Normal
Respiratory: Clear and Non Labored Respirations; No Wheezes, Rales, Rhonchi or Crackles
Cardiac: S1/S2 and Regular Rhythm; No Murmur, Rub or Gallop
Breast: Deferred by me
GI: Soft, Non Tender, Non Distended and Normal Bowel Sounds; No Organomegaly
Rectal: Deferred by Provider
Genito-urinary: Deferred by me
Musculoskeletal: No Clubbing, No Cyanosis, No Edema and Normal Gait & Station
Skin: Warm, Dry and IV/Catheter Site; No Rash
Neuro: Awake, Alert, AO x 3, Nonfocal/grossly intact and Cranial Nerves Intact
Hematologic/Lymphatic: No Lymphadenopathy
Psych: Calm and Intact Judgment/Insight
Laboratory Results
-
01/24/24 12:51
01/24/24 12:51
Laboratory Results
Total Bilirubin 4.6 mg/dl (0.2-1.3) H 01/24/24 12:51
AST 244 U/L (14-36) H 01/24/24 12:51
ALT 225 U/L (0-35) H 01/24/24 12:51
Alkaline Phosphatase 736 U/L (38-126) H 01/24/24 12:51
Lipase 33 U/L (23-300) 01/24/24 12:51
Data Reviewed
-
Ultrasound: Report Reviewed by me (There is choledocholithiasis with a 1 cm obstructing calculus in the distal common bile duct and a 6.4 cm lobular fluid collection adjacent to the gallbladder which is high-level suspicion for biloma/leak.)
Lab Data: Labs Reviewed by me
Impression/Plan
-
IMPRESSION/PLAN:
#Choledocholithiasis
- US: There is choledocholithiasis with a 1 cm obstructing calculus in the distal common bile duct and a 6.4 cm lobular fluid collection adjacent to the gallbladder which is high-level suspicion for biloma/leak.
- Admit to med/surg
- Pain management and antiemetics
- IV antibiotics
- GI consult for potential ERCP
- Surgery consult
#Asthma
- continue albuterol HFA PRN
DNR
DVT Px: Heparin Sq
--- NOTE | 2024-01-24 18:05 | W.PN.UPDATE ---
Update Note
Progress Note Update
This is an addendum to the H&P written by Nichol Dickinson on 01/24/2024. Patient seen and examined independently with RFID TECHNICIAN.
53-year-old female past medical history of acute choledocholithiasis with ascending cholangitis, asthma, obesity, presenting with right upper quadrant pain rating to back, dark urine, jaundice, 1 episode of vomiting secondary to choledocholithiasis
with 1 cm obstructing calculus in distal common bile duct and 6.4 cm lobular fluid collection adjacent to the gallbladder suspicious for biloma/leak as seen on abdominal ultrasound.
She was recently admitted from 01/01 to 01/05 for similar symptoms and presentation. She underwent ERCP on 01/02 and underwent biliary sphincterotomy with pus noted with only partial removal of choledocholithiasis at cystic takeoff suggestive of
Mirizzi syndrome. 1 plastic stent was placed in the gallbladder 1 plastic stent was placed in common bile duct. Patient later had ERCP on 01/04 which showed migration of the cystic duct stone into the CBD. The chips he was performed with removal
of stones. 2 stones were removed. The 2 stents were removed.
She was seen by general surgery for cholecystectomy which she was not interested and left AMA.
N.p.o., ceftriaxone/Flagyl, MRCP ordered, GI following, general surgery consulted.
--- NOTE | 2024-01-24 20:15 | PTCARENOTE ---
Pt arrive to [facility] at 2012 on a stretcher from the ED. Pt c/o abdominal pain in RLQ. Full head to toe complete. Admission questions complete. Pt aa&o x3. Pt oriented to room and call kelley. Bed locked and in lowest position. Care ongoing.
[2024-01-24] MEDS: DILAUDID 0.5 MG IV (21:37)
[2024-01-25] MEDS: FLAGYL 500 MG 100 IV ×3 (01:30→17:57)
[2024-01-25] MEDS: ZOFRAN 4 MG IV ×2 (01:40→18:01)
[2024-01-25] MEDS: TORADOL 10 MG IV ×2 (02:37→23:02)
[2024-01-25 06:00] VITALS: BP 148/80
[2024-01-25 07:30] VITALS: BP 146/95
[2024-01-25 07:51] LABS: Hematocrit 35.4 % (37.0-47.0); Hemoglobin 11.5 g/dL (12.0-16.0); Mean Corp Hgb Conc. 32.5 g/dL (33.0-37.0); Mean Corpuscular Hgb 28.1 pg (27.0-31.0); Mean Corpuscular Volume 86.6 fL (81.0-99.0); Mean Platelet Volume 11.3 fL (7.4-10.4); Platelet Count 285 10^3/uL (130-400); Red Blood Cell Count 4.09 10^6/uL (4.20-5.40); Red Cell Dist. Width 15.2 % (11.5-14.5); White Blood Cell Count 9.2 10^3/uL (4.8-10.8)
--- NOTE | 2024-01-25 08:12 | W.PN.HOSP.TC ---
Addendum entered and electronically signed by Mary Ross MD 01/25/24 17:12:
I saw and evaluated the patient independently. I reviewed the resident�s note and agree with findings and plan as documented by Dr. Victoria.
GENERAL: well developed, well nourished, female in no apparent distress
HEENT: NC/AT
HEART: regular rate and rhythm, +S1, +S2
LUNGS : clear to auscultation bilaterally
ABDOM: soft, nontender, nondistended, + bowel sounds
EXT: no cyanosis, clubbing, or edema
Abdominal pain with elevated LFTs--Ultrasound indicative of choledocholithiasis---MRI/MRCP indicative of perforated cholecystitis with an adjacent bilobed peripherally enhancing fluid collection extending from the gallbladder fossa along the
inferior edge the right hepatic lobe measuring 2.9 x 1.7 and 4.9 x 3.7 cm as well as a 9mm stone in the distal common bile duct--cont rocephin/flagyl--apprec GI and surgery--no immediate surgery indicated as per surgery--await IR drainage of GB and
fluid collection/abscess--ERCP tomorrow--pain control
Asthma-- no acute exacerbation--Continue albuterol HFA as needed
CODE STATUS-- DNR
DVT proph--SC heparin
Original Note:
Today's Communication/Plan
-
Abx
IR drainage.
Assessment / Plan
Assessment / Plan
#Abdominal pain with elevated LFTs
#Ultrasound indicative of choledocholithiasis
-Initiated on antibiotics ceftriaxone and metronidazole
-MRI/MRCP-Findings of perforated cholecystitis with an adjacent bilobed peripherally enhancing fluid collection extending from the gallbladder fossa along the inferior edge the right hepatic lobe measuring 2.9 x 1.7 and 4.9 x 3.7 cm. This likely
represents an adjacent biloma/abscess with extensive surrounding inflammatory changes. There is mild heterogeneous enhancement of the inferior right hepatic lobe, adjacent to the collection which may represent focal reactive hepatitis. There is
intrahepatic and extrahepatic biliary ductal dilation with a 9 mm filling defect in the distal aspect of the common bile duct, likely a stone. There is wall thickening, edema and enhancement throughout the biliary system likely representing
cholangitis.
-GI consulted, input appreciated, plan for IR drainage today then ERCP with stenting tomorrow
-Surgery consulted for evaluation for cholecystectomy
-Trend LFTs
-Pain control as needed
# Asthma
Continue albuterol HFA as needed
CODE STATUS; DNR
DVT prophylaxis; heparin subcu
Anticipated Discharge: > 48 hours
Subjective/Interval History
-
Date of Service: January 25, 2024
Objective Data
-
Labs:
Laboratory Results
01/25/24
06:27
WBC 9.2
Hgb 11.5 L
Hct 35.4 L
Plt Count 285
Sodium Pending
Potassium Pending
Chloride Pending
Carbon Dioxide Pending
BUN Pending
Creatinine Pending
Glucose Pending
Calcium Pending
Vital Signs:
Vital Signs
Temp Pulse Resp BP Pulse Ox
98.5 F 97 16 146/95 97
01/25/24 07:30 01/25/24 07:30 01/25/24 07:30 01/25/24 07:30 01/25/24 07:30
I&O
01/24/24 01/25/24 01/26/24
06:59 06:59 06:59
Intake Total 580 / 580
Balance 580 / 580
Review of Systems
-
All other systems: Reviewed and negative (Except as documented)
Physical Exam
-
General: Well Developed, Well Nourished and No Apparent Distress
HEENT: Normocephalic
Respiratory: Clear to Auscultation
Cardiac: Regular Rhythm and S1/S2
GI: Soft, Nondistended and Tender (Midepigastric abdominal tenderness)
Musculoskeletal: No Edema
Neuro: AO x 3
Psych: Calm
[2024-01-25 08:14] LABS: Blood Urea Nitrogen 7 mg/dl (7-17); Calcium 9.3 mg/dl (8.4-10.2); Carbon Dioxide 21 mmol/L (22-30); Chloride 105 mmol/L (98-107); Estimated Creatinine Clearance 115 ml/min; Glucose 66 mg/dl (70-99); Potassium 3.9 mmol/L (3.5-5.1); Sodium 140 mmol/L (135-145); eGFR > 60.00
[2024-01-25] MEDS: TYLENOL 650 MG PO ×2 (09:41→17:58)
--- NOTE | 2024-01-25 10:16 | CON.GS ---
Consultation
-
Requesting Provider: Vandana
Performing Provider: Kyrie
Reason for Consultation: Choladocholithiasis
Medical History
-
Chief Complaint: Abd pain, dark urine
History of Present Illness:
53F with acute onset recurrent abd pain similar to recent episodes. She was [facility] about 3 weeks [facility] for similar complaint[facility], underwent ERCP and stenting. ERCP was challenging 2/2 large stone at cystic takeoff,
eventualy stone was cleared with 2nd attempt ERCP. Declined CCY that admission. She was home until about 5 days ago when she presented to the ED with recurrent pain. W/u was negative for new acute process at that time [facility]
Returned yesterday to ED with recurrent pain and dark urine, this admit labs showing LFT elevation and imaging with cathy-cholecystic fluid collections concerning for abscess/biloma. Presently her pain has resolved.
The pt is a 53 yo female with a PMH significant for asthma, with recent admission to 01/02/24- 01/06/24 with choledocholithiasis and cholangitis.During that admission she completed 2 ERCP's. Initially with large stone in cystic duct take off
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 Biliary tree with swept for debris and pus with stent in gallbladder
and CBD. She repeat ERCP 01/04 with erythema hemorrhagic, inflammation and petechiae with migration of large stone impacted in cystic duct migrated with indwelling stent in CBD -- EHL completed with sphincterotomy and balloon extraction with removal
of stents. She returned with pain 01/18 with improved LFT's and US noted GBWT and fluid and acute cholecystis stone is new in gallbladder with decreased pericholecystitis fluid and mild ascites. She was discharged. She now return again with
pain but now recurrent rise in LFT's with bili 4.6 AST 244, ALT 225, alk phos 736. Repeat US with concern for choledocholithiasis with 1 cm obstructing calculus in distal CBD and 6.4 cm lobular fluid collection adjacent to GB suspicious for biloma
and leak.
At this time patient admits to mid abdominal pain along with vomiting but no GERD, diarrhea, constipation, or rectal bleeding.
Past Medical History
Past Medical History: Other (choledocholithiasis s/p ERCP x 2 with cystic duct/CBD stone s/p stents with removal and with EHL)
Past Surgical History: Other (, Orthopedic (Bilateral ankle surgery with plates and pins after trauma) and Other (Cyst excision from her neck))
Social History
Tobacco: Smoker
Alcohol: None
Drug: None
Employment: Employed
Family History
Family History: Reviewed & Noncontributory
Allergies / Home Medications
Allergy/AdvReac Type Severity Reaction Status Date / Time
Penicillins Allergy Rash Verified 01/24/24 12:40
�Medication �Instructions �Recorded �Confirmed �Type
albuterol sulfate 90 mcg/actuation 2 puff inhalation R Q6HPRN PRN sob 01/02/24 01/24/24 History
aerosol inhaler
ibuprofen 125 mg-acetaminophen 250 2 tab PO Q8HPRN PRN mild pain 01/02/24 01/24/24 History
mg tablet (Advil Dual Action)
Review of Systems
-
A 10 point review of systems was completed, and was negative except as per HPI.
Physical Exam
Vital Signs
Temp Pulse Resp BP Pulse Ox
98.5 F 97 16 146/95 97
01/25/24 07:30 01/25/24 07:30 01/25/24 07:30 01/25/24 07:30 01/25/24 07:30
01/24/24 01/25/24 01/26/24
06:59 06:59 06:59
Actual Weight 91.314 kg
Body Mass Index (BMI) 35.7
Lab Results
01/25/24 06:27
01/25/24 06:27
WBC 9.2 10^3/uL (4.8-10.8) 01/25/24 06:27
Hgb 11.5 g/dL (12.0-16.0) L 01/25/24 06:27
Hct 35.4 % (37.0-47.0) L 01/25/24 06:27
Plt Count 285 10^3/uL (130-400) 01/25/24 06:27
Abs Immat Gran (auto) 0.0 10^3/uL (0-0.05) 01/24/24 12:51
Neutrophils % 84.2 % (42.2-75.2) H 01/24/24 12:51
Physical Exam
General: Well Developed, Well Nourished and No Apparent Distress
HEENT: Normocephalic and Scleral Icterus (mild)
GI: Soft, Non Distended, Tender (mild-mod ttp to RUQ/epigastrium) and Obese
Skin: Warm, Dry and Other (no jaundice)
Neuro: AO x 3
Psych: Calm
Data Reviewed
-
Ultrasound: Image Personally Visualized and interpreted, Report Reviewed by me, Discussed with Physician and Discussed with Patient
MRI: Image Personally Visualized and interpreted, Report Reviewed by me, Discussed with Physician and Discussed with Patient
Labs: Labs Reviewed by me, Discussed with Physician and Discussed with Patient
Old Records: Reviewed
Assessment / Plan
-
53F with recurrent choledocholithiasis and cathy-cholecystic fluid collections
AFVSS, pain has resolved
No leukocytosis
LFTs elevated
US with stones, PCF, GBWT, choledocho
MRI with bilbular fluid collection abjacent to gb, surrounding inflammation
Plan:
IR for drain, may require both gb drain and separate drain for fluid collections
GI for ERCP for ductal stone mgmt
IV abx
All other care as per primary team
[2024-01-25 10:59] LABS: INR 1.12; PT 14.5 Sec (11.4-14.6)
--- NOTE | 2024-01-25 11:39 | W.PN.GI.CBS2 ---
Addendum entered and electronically signed by Checo Garland MD 01/25/24 13:15:
I saw and examined the patient.
The [employer]ADING VICE PRESIDENT or PA's note was reviewed and I agree with the note.
Comment: c/o abd pain but controlled
ABD soft mild RUQ tender
MRI showed perforated GB with adjacent fluid/abscess and 9mm distal CBD stone
REC:
For IR drainage today
Cont Ceftriaxone
Plan ERCP tomorrow to remove CBD stone
Timing of cholecystectomy per Surgery
Original Note:
Today's Communication / Plan
-
MRI as noted with concern for perforated cholecystitis
plan for IR drainage today then ERCP with stenting tomorrow
cont NPO
cont abx
trend LFT's
cont abx
hold Heparin and add compression stocking for procedure in AM
appreciate surgical consult-- timing for eventual OP nomi per surgical team-- I reviewed with Dr. Mittal
Assessment / Plan
-
The pt is a 53 yo female with a PMH significant for asthma, with recent admission to 01/02/24- 01/06/24 with choledocholithiasis and cholangitis.During that admission she completed 2 ERCP's. Initially with large stone in cystic duct take off
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 Biliary tree with swept for debris and pus with stent in gallbladder
and CBD. She repeat ERCP 01/04 with erythema hemorrhagic, inflammation and petechiae with migration of large stone impacted in cystic duct migrated with indwelling stent in CBD -- EHL completed with sphincterotomy and balloon extraction with removal
of stents. She returned with pain 01/18 with improved LFT's and US noted GBWT and fluid and acute cholecystis stone is new in gallbladder with decreased pericholecystitis fluid and mild ascites. She was discharged. She now return again with
pain but now recurrent rise in LFT's with bili 4.6 AST 244, ALT 225, alk phos 736. Repeat US with concern for choledocholithiasis with 1 cm obstructing calculus in distal CBD and 6.4 cm lobular fluid collection adjacent to GB suspicious for biloma
and leak.
01/23 MRI with MRCP
Findings of perforated cholecystitis with an adjacent bilobed peripherally enhancing fluid collection extending from the gallbladder fossa along the inferior edge the right hepatic lobe measuring 2.9 x 1.7 and 4.9 x 3.7 cm. This likely represents an
adjacent biloma/abscess with extensive surrounding inflammatory changes. There is mild heterogeneous enhancement of the inferior right hepatic lobe, adjacent to the collection which may represent focal reactive hepatitis.
There is intrahepatic and extrahepatic biliary ductal dilation with a 9 mm filling defect in the distal aspect of the common bile duct, likely a stone. There is wall thickening, edema and enhancement throughout the biliary system likely representing
cholangitis.
-perforated cholecystitis with adjacent biloma/abscess
-ductal dilatation with concern for continued filling defect in distal aspect of CBD
-biliary enhancement with concern for cholangitis
-recent ERCP x 2 with CBD stone and impacted cystic duct stone with migration s/p EHL then stent removal
other med problems:
-hx asthma
-
-ankle surgery
PLAN:
MRI as noted with concern for perforated cholecystitis
plan for IR drainage today then ERCP with stenting tomorrow
cont NPO
cont abx
trend LFT's
cont abx
hold Heparin and add compression stocking for procedure in AM
appreciate surgical consult-- timing for eventual OP nomi per surgical team
Subjective
Subjective
Date of Service: January 25, 2024
NPO for IR drain today less pain than on admission, no fever overnight
Objective
Data Reviewed
Laboratory Data:
Laboratory Results
01/25/24 06:27
01/25/24 06:27
Laboratory Results
PT 14.5 Sec (11.4-14.6) 01/25/24 10:19
INR 1.12 01/25/24 10:19
Total Bilirubin 4.6 mg/dl (0.2-1.3) H 01/24/24 12:51
AST 244 U/L (14-36) H 01/24/24 12:51
ALT 225 U/L (0-35) H 01/24/24 12:51
Alkaline Phosphatase 736 U/L (38-126) H 01/24/24 12:51
Lipase 33 U/L (23-300) 01/24/24 12:51
Vital Signs and I&O:
Vital Signs
Temp Pulse Resp BP Pulse Ox
98.5 F 97 16 146/95 97
01/25/24 07:30 01/25/24 07:30 01/25/24 07:30 01/25/24 07:30 01/25/24 07:30
I&O
01/24/24 01/25/24 01/26/24
06:59 06:59 06:59
Intake Total 580 / 580
Balance 580 / 580
Physical Exam
Physical Exam
HEENT: Anicteric and Moist mucous membranes
Cardiology: Normal Sinus Rhythm
Pulmonary: Clear
GI: Soft, Non Distended and Tender (mild mid abdominal pain )
Extremities: No Edema
Neuro: Non Focal
[2024-01-25 12:33] LABS: ALT (SGPT) 207 U/L (0-35); AST (SGOT) 165 U/L (14-36); Albumin 3.6 g/dl (3.5-5.0); Alkaline Phosphatase 898 U/L (38-126); Direct Bilirubin 5.1 mg/dl (0.0-0.4); Total Protein 6.7 g/dl (6.3-8.2)
--- NOTE | 2024-01-25 14:31 | CM ---
Patient seen at bedside with physicians. Patient lives with son and mother in a 2 story home. patient can arrange for a first floor set up. Patient has no PCP, reviewed residency clinic and provided information about program. Patient uses the [facility] in
[place] and normally is very independent of ADL's and IADL's. CM will continue to follow for discharge planning needs.
Plan; home with VN vs home with no needs.
[2024-01-25 15:14] VITALS: BP 142/79
[2024-01-25] MEDS: ROCEPHIN 2000 MG IV (17:58)
[2024-01-25] MEDS: STERILE WATER FOR INJECTION 20 ML IV (17:58)
[2024-01-25 22:40] VITALS: BP 114/78
[2024-01-26] VITALS (7 sets, daily range): BP systolic 78–124; BP diastolic 69–106
[2024-01-26] MEDS: FLAGYL 500 MG 100 IV ×3 (01:24→18:23)
[2024-01-26 07:05] LABS: Hematocrit 32.9 % (37.0-47.0); Hemoglobin 10.8 g/dL (12.0-16.0); Mean Corp Hgb Conc. 32.8 g/dL (33.0-37.0); Mean Corpuscular Hgb 27.6 pg (27.0-31.0); Mean Corpuscular Volume 83.9 fL (81.0-99.0); Mean Platelet Volume 10.9 fL (7.4-10.4); Platelet Count 268 10^3/uL (130-400); Red Blood Cell Count 3.92 10^6/uL (4.20-5.40); Red Cell Dist. Width 15.5 % (11.5-14.5); White Blood Cell Count 7.6 10^3/uL (4.8-10.8)
[2024-01-26 07:38] LABS: ALT (SGPT) 173 U/L (0-35); AST (SGOT) 115 U/L (14-36); Albumin 3.4 g/dl (3.5-5.0); Alkaline Phosphatase 899 U/L (38-126); Blood Urea Nitrogen 10 mg/dl (7-17); Calcium 8.8 mg/dl (8.4-10.2); Carbon Dioxide 22 mmol/L (22-30); Chloride 104 mmol/L (98-107); Estimated Creatinine Clearance 115 ml/min; Glucose 85 mg/dl (70-99); Magnesium 2.1 mg/dl (1.6-2.3); Potassium 3.6 mmol/L (3.5-5.1); Sodium 142 mmol/L (135-145); Total Bilirubin 6.7 mg/dl (0.2-1.3); Total Protein 6.4 g/dl (6.3-8.2); eGFR > 60.00
--- NOTE | 2024-01-26 08:20 | W.PN.GS2 ---
Today's Communication / Plan
-
`
Assessment / Plan
-
Assessment: 53-year-old female presenting with obstructive jaundice secondary to choledocholithiasis, probable cholecystitis with adjacent contained fluid collection, ? Abscess
AFVSS
Bili up to 6.7
White blood cell count normal
Plan: ERCP for choledocholithiasis
IR consulted for drainage of pericholecystic fluid collection/cholecystostomy tube
On Rocephin and Flagyl
Will follow
Subjective Data
-
Date of Service: January 26, 2024
Patient seen and examined.
No nausea, no vomiting, still with some tenderness/pain in the right upper quadrant but controlled
No fevers or chills
Objective Data
-
Intake and Output
01/25/24 01/26/24 01/27/24
06:59 06:59 06:59
Intake Total 580 / 580 1160 / 1160
Balance 580 / 580 1160 / 1160
Intake:
Oral fluids 480 / 480 960 / 960
IV fluids (Total) 0 / 0
IV piggybacks 100 / 100 200 / 200
Other:
Number of approximated MODERATE 2 3
amounts of urine
Vital Signs
Temp Pulse Resp BP Pulse Ox
98.2 F 88 16 122/77 99
01/26/24 07:20 01/26/24 07:20 01/26/24 07:20 01/26/24 07:20 01/26/24 07:20
Lab Results
01/26/24 06:04
01/26/24 06:04
Calcium 8.8 mg/dl (8.4-10.2) 01/26/24 06:04
Magnesium 2.1 mg/dl (1.6-2.3) 01/26/24 06:04
Total Bilirubin 6.7 mg/dl (0.2-1.3) H 01/26/24 06:04
Direct Bilirubin 5.1 mg/dl (0.0-0.4) H 01/25/24 06:27
AST 115 U/L (14-36) H 01/26/24 06:04
ALT 173 U/L (0-35) H 01/26/24 06:04
Alkaline Phosphatase 899 U/L (38-126) H 01/26/24 06:04
Total Protein 6.4 g/dl (6.3-8.2) 01/26/24 06:04
Albumin 3.4 g/dl (3.5-5.0) L 01/26/24 06:04
Physical Exam
-
NAD AAOx3
ABD: Soft, nondistended, localizing tenderness right upper quadrant at costal margin. No rebound, rigidity or guarding
--- NOTE | 2024-01-26 08:29 | W.PN.HOSP.TC ---
Addendum entered and electronically signed by Mary Ross MD 01/26/24 14:12:
I saw and evaluated the patient independently. I reviewed the resident�s note and agree with findings and plan as documented by Dr. Presley.
GENERAL: well developed, well nourished, female in no apparent distress
HEENT: NC/AT
HEART: regular rate and rhythm, +S1, +S2
LUNGS : clear to auscultation bilaterally
ABDOM: soft, nontender, nondistended, + bowel sounds
EXT: no cyanosis, clubbing, or edema
Abdominal pain with elevated LFTs--Ultrasound indicative of choledocholithiasis---MRI/MRCP indicative of perforated cholecystitis with an adjacent bilobed peripherally enhancing fluid collection extending from the gallbladder fossa along the
inferior edge the right hepatic lobe measuring 2.9 x 1.7 and 4.9 x 3.7 cm as well as a 9mm stone in the distal common bile duct--cont rocephin/flagyl--apprec GI and surgery--no immediate surgery indicated as per surgery--await IR drainage of GB and
fluid collection/abscess--ERCP tomorrow 01/26--pain control
Asthma-- no acute exacerbation--Continue albuterol HFA as needed
CODE STATUS-- DNR
DVT proph--SC heparin
Original Note:
Today's Communication/Plan
-
Plan for IR drainage today
Assessment / Plan
Assessment / Plan
53yo F with PMH choledocholithiasis, asthma who presented to ED 01/24/24 for RUQ pain. She was recently admitted 01/01-01/05 and seen in ED 01/18 for similar symptoms and choledocholithiasis.
#Choledocholithiasis, cholecystitis
#Pericholecystic fluid collections
-MRI/MRCP- perforated cholecystitis; peripherally enhancing fluid collection 2.9x1.7 and 4.9x3.7 likely biloma/abscess with surrounding inflammatory changes; possible reactive hepatitis; intra and extrahepatic biliary ductal dilation with 9mm
filling defect in distal CBD likely a stone; cholangitis
-GI, general surgery, IR consulted. Appreciate recs.
-Plan for IR drainage, ERCP this admission; eventual cholecystectomy with timing per surgery.
-NPO prior to procedures. IVF maintenance.
-Elevated Tbili, AST, ALT, alk phos; consistent with dx
-Pain control as needed
- Continue ceftriaxone and metronidazole
# Asthma
Continue albuterol HFA as needed
Code status: Full
VTE ppx: Ambulation as tolerated, SCDs. Heparin on hold for procedures
Diet: NPO prior to procedures
Dispo planning: Anticipate home pending clinical course
Anticipated Discharge: 24 - 48 hours
Subjective/Interval History
-
Date of Service: January 26, 2024
No events overnight. Feels well this morning. Abdominal pain was a 7/10 yesterday, but feels better today. Denies lightheadedness, dizziness, chest pain, shortness of breath, nausea, vomiting, diarrhea, constipation. Last BM 3 days ago, no black or
bloody stools. Currently NPO prior to procedures.
Objective Data
-
Labs:
Laboratory Results
01/26/24
06:04
WBC 7.6
Hgb 10.8 L
Hct 32.9 L
Plt Count 268
Sodium 142
Potassium 3.6
Chloride 104
Carbon Dioxide 22
BUN 10
Creatinine 0.5 L
Glucose 85
Calcium 8.8
Total Bilirubin 6.7 H
AST 115 H
ALT 173 H
Alkaline Phosphatase 899 H
Vital Signs:
Vital Signs
Temp Pulse Resp BP Pulse Ox
98.2 F 88 16 122/77 99
01/26/24 07:20 01/26/24 07:20 01/26/24 07:20 01/26/24 07:20 01/26/24 07:20
I&O
01/25/24 01/26/24 01/27/24
06:59 06:59 06:59
Intake Total 580 / 580 1160 / 1160
Balance 580 / 580 1160 / 1160
Review of Systems
-
History Source: Patient
All other systems: Not reviewed unless documented
Physical Exam
-
General: Well Developed, Well Nourished, No Apparent Distress, Comfortable and Conversant
HEENT: Normocephalic and Atraumatic
Respiratory: Clear to Auscultation and Non Labored Respirations
Cardiac: Regular Rhythm and S1/S2
GI: Soft, Nondistended, Normal Bowel Sounds, Tender (RUQ TTP) and Other (no rebound, rigidity, guarding)
Musculoskeletal: No Edema
Skin: Warm, Dry and Jaundice
Neuro: Awake, Alert, Oriented and Nonfocal/Grossly Intact
Psych: Calm and Intact Judgement/Insight
Data Reviewed
-
Ultrasound: Report Reviewed by me
MRI: Report Reviewed by me
Labs: Labs Reviewed by me
--- NOTE | 2024-01-26 09:40 | W.PN.GI.CBS2 ---
Today's Communication / Plan
-
Bili increased to 6.7 today from 6.0 yesterday, 4.6 day prior
Pt for IR drain placement today
Plan ERCP tomorrow to remove CBD stone. Bili rising, but non-toxic and benign exam at this time
Cont abx- ceftriaxone/flagyl
Assessment / Plan
-
The pt is a 53 yo female with a PMH significant for asthma, with recent admission to 01/02/24- 01/06/24 with choledocholithiasis and cholangitis.During that admission she completed 2 ERCP's. Initially with large stone in cystic duct take off
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 Biliary tree with swept for debris and pus with stent in gallbladder
and CBD. She repeat ERCP 01/04 with erythema hemorrhagic, inflammation and petechiae with migration of large stone impacted in cystic duct migrated with indwelling stent in CBD -- EHL completed with sphincterotomy and balloon extraction with removal
of stents. She returned with pain 01/18 with improved LFT's and US noted GBWT and fluid and acute cholecystis stone is new in gallbladder with decreased pericholecystitis fluid and mild ascites. She was discharged. She now return again with
pain but now recurrent rise in LFT's with bili 4.6 AST 244, ALT 225, alk phos 736. Repeat US with concern for choledocholithiasis with 1 cm obstructing calculus in distal CBD and 6.4 cm lobular fluid collection adjacent to GB suspicious for biloma
and leak.
01/23 MRI with MRCP
Findings of perforated cholecystitis with an adjacent bilobed peripherally enhancing fluid collection extending from the gallbladder fossa along the inferior edge the right hepatic lobe measuring 2.9 x 1.7 and 4.9 x 3.7 cm. This likely represents an
adjacent biloma/abscess with extensive surrounding inflammatory changes. There is mild heterogeneous enhancement of the inferior right hepatic lobe, adjacent to the collection which may represent focal reactive hepatitis.
There is intrahepatic and extrahepatic biliary ductal dilation with a 9 mm filling defect in the distal aspect of the common bile duct, likely a stone. There is wall thickening, edema and enhancement throughout the biliary system likely representing
cholangitis.
Impression:
-perforated cholecystitis with adjacent biloma/abscess
-ductal dilatation with concern for continued filling defect in distal aspect of CBD
-biliary enhancement with concern for cholangitis
-recent ERCP x 2 with CBD stone and impacted cystic duct stone with migration s/p EHL then stent removal
other med problems:
-hx asthma
-
-ankle surgery
Subjective
Subjective
Date of Service: January 26, 2024
Minimal abd pain, no other complaints. Pt anxious about missing work
Objective
Data Reviewed
Laboratory Data:
Laboratory Results
01/26/24 06:04
01/26/24 06:04
Laboratory Results
PT 14.5 Sec (11.4-14.6) 01/25/24 10:19
INR 1.12 01/25/24 10:19
Magnesium 2.1 mg/dl (1.6-2.3) 01/26/24 06:04
Total Bilirubin 6.7 mg/dl (0.2-1.3) H 01/26/24 06:04
AST 115 U/L (14-36) H 01/26/24 06:04
ALT 173 U/L (0-35) H 01/26/24 06:04
Alkaline Phosphatase 899 U/L (38-126) H 01/26/24 06:04
Lipase 33 U/L (23-300) 01/24/24 12:51
Vital Signs and I&O:
Vital Signs
Temp Pulse Resp BP Pulse Ox
98.2 F 88 16 122/77 99
01/26/24 07:20 01/26/24 07:20 01/26/24 07:20 01/26/24 07:20 01/26/24 07:20
I&O
01/25/24 01/26/24 01/27/24
06:59 06:59 06:59
Intake Total 580 / 580 1160 / 1160
Balance 580 / 580 1160 / 1160
Physical Exam
Physical Exam
GI: Soft, Non Distended and Tender (mild tender)
[2024-01-26] MEDS: NSS 1000 IV ×2 (10:33→20:18)
[2024-01-26] MEDS: TYLENOL 650 MG PO ×2 (10:34→16:40)
--- NOTE | 2024-01-26 13:19 | CM ---
Patient seen at bedside with physician. Patient is for drains today. Patient also for procedure tomorrow per physician. CM will continue to follow for discharge planning needs.
Plan; home with no needs vs home with VN
--- NOTE | 2024-01-26 13:25 | PTCARENOTE ---
Pt to IR to have possible drain placement. VSS, Pt is afebrile. Pt instructed on what to expect pre and post procedure. Pt verbalized understanding of instructions.
--- NOTE | 2024-01-26 14:38 | W.PN.IRAD.PR ---
Procedure Note
-
Successful drainage of a RUQ fluid collection. Collection was called bilobed in MRI, however the deep component did not communicate with the more superficial component. Both collections appeared small on ultrasound, and were too diminutive for
drainage catheter placement. The superficial collection was aspirated completely. The deeper component was unable to be safely access percutaneously without going through and though the liver. Collection was very small as well, likely only
containing a few cc's.
[2024-01-26] MEDS: ROCEPHIN 2000 MG IV (18:23)
[2024-01-26] MEDS: STERILE WATER FOR INJECTION 20 ML IV (18:23)
[2024-01-26] MEDS: ZOFRAN 4 MG IV (20:11)
[2024-01-26] MEDS: TORADOL 10 MG IV (20:12)
[2024-01-27] MEDS: TYLENOL 650 MG PO (00:17)
[2024-01-27] MEDS: FLAGYL 500 MG 100 IV ×3 (02:20→17:06)
[2024-01-27] MEDS: NSS 1000 IV ×2 (02:25→14:06)
[2024-01-27] MEDS: TORADOL 10 MG IV (04:06)
[2024-01-27 06:26] LABS: Hemoglobin 10.2 g/dL (12.0-16.0); Mean Corpuscular Hgb 28.5 pg (27.0-31.0); Mean Corpuscular Volume 83.8 fL (81.0-99.0); Mean Platelet Volume 11.3 fL (7.4-10.4); Platelet Count 260 10^3/uL (130-400); Red Blood Cell Count 3.58 10^6/uL (4.20-5.40); Red Cell Dist. Width 15.5 % (11.5-14.5); White Blood Cell Count 6.5 10^3/uL (4.8-10.8)
[2024-01-27 06:53] LABS: Blood Urea Nitrogen 12 mg/dl (7-17); Calcium 8.7 mg/dl (8.4-10.2); Carbon Dioxide 25 mmol/L (22-30); Chloride 106 mmol/L (98-107); Estimated Creatinine Clearance 115 ml/min; Glucose 91 mg/dl (70-99); Potassium 3.5 mmol/L (3.5-5.1); Sodium 141 mmol/L (135-145); eGFR > 60.00
[2024-01-27 07:02] VITALS: BP 135/76
[2024-01-27 07:50] VITALS: BP 135/76
[2024-01-27 09:04] LABS: ALT (SGPT) 126 U/L (0-35); AST (SGOT) 81 U/L (14-36); Alkaline Phosphatase 846 U/L (38-126); Direct Bilirubin 5.7 mg/dl (0.0-0.4); Total Bilirubin 6.7 mg/dl (0.2-1.3); Total Protein 5.7 g/dl (6.3-8.2)
--- NOTE | 2024-01-27 09:20 | W.PN.GS2 ---
Addendum entered and electronically signed by Jayson aDllas MD 01/27/24 09:49:
Patient seen and examined. Agree with assessment plan as documented below.
No new complaints. Denies worsening abdominal pain; no significant improvement following IR aspiration. No fevers or chills.
Gen: NAD, jaundice
Abd: soft, minimal tenderness, ND, non-peritoneal
Patient is a 53 yo F p/w persistent/recurrent choledocholithiasis
PPD #1 IR aspiration of bile tinged fluid collection, cx preliminary with no growth
AFVSS
Bili up to 6.7
White blood cell count normal
The natural history and pathophysiology of biliary and stone disease was reviewed with the patient. Anatomy and workup and management thus far was reviewed. Unlikely that her perihepatic fluid collection was related to a perforated gallbladder
given the lack of inflammation or connection to the gallbladder. Possible that this was related to small leak from her prior ERCP with seeding of the space. IR note reviewed and too small to place drain, though noted to be bilious and purulent.
Recommend treatment with antibiotics. Tentative plan for ERCP today for persistent choledocholithiasis. Role and timing of cholecystectomy was reviewed. Ideally this would be performed following clearance of her choledocholithiasis as well as
treatment and management of her perihepatic abscess. Tentative plan for outpatient management at this time.
Plan:
-- ERCP for choledocholithiasis with GI service
-- Continue ABX
-- Will need eventual cholecystectomy, timing TBD pending patient progress (this admission vs more likely outpatient after completion of abx)
-- Medical management as per primary team
Original Note:
Today's Communication / Plan
-
ERCP
Assessment / Plan
-
Assessment: 53-year-old female presenting with obstructive jaundice secondary to choledocholithiasis, probable cholecystitis with adjacent contained fluid collection PPD #1 IR aspiration of bile tinged fluid collection, cx preliminary with no growth
AFVSS
Bili up to 6.7
White blood cell count normal
Plan: ERCP for choledocholithiasis with GI service
Continue ABX
Will need eventual cholecystectomy, timing TBD pending patient progress (this admission vs more likely outpatient after completion of abx)
Medical management as per primary team
Subjective Data
-
Date of Service: January 27, 2024
Patient seen and examined at bedside with Dr. Dallas. Denies n/v. Denies pain.
Objective Data
-
Intake and Output
01/26/24 01/27/24 01/28/24
06:59 06:59 06:59
Intake Total 1160 / 1160 1730 / 1730
Balance 1160 / 1160 1730 / 1730
Intake:
Oral fluids 960 / 960 480 / 480
IV fluids (Total) 1250 / 1250
NSS 50 / 50
IV piggybacks 200 / 200
Other:
Number of approximated MODERATE 3 2
amounts of urine
Vital Signs
Temp Pulse Resp BP Pulse Ox
98.3 F 65 18 135/76 96
01/27/24 07:50 01/27/24 07:50 01/27/24 07:50 01/27/24 07:50 01/27/24 07:50
Lab Results
01/27/24 04:46
01/27/24 04:46
Calcium 8.7 mg/dl (8.4-10.2) 01/27/24 04:46
Magnesium 2.1 mg/dl (1.6-2.3) 01/26/24 06:04
Total Bilirubin 6.7 mg/dl (0.2-1.3) H 01/27/24 04:46
Direct Bilirubin 5.7 mg/dl (0.0-0.4) H 01/27/24 04:46
AST 81 U/L (14-36) H 01/27/24 04:46
ALT 126 U/L (0-35) H 01/27/24 04:46
Alkaline Phosphatase 846 U/L (38-126) H 01/27/24 04:46
Total Protein 5.7 g/dl (6.3-8.2) L 01/27/24 04:46
Albumin 3.0 g/dl (3.5-5.0) L 01/27/24 04:46
Physical Exam
-
NAD AAOx3
ABD: Soft, nondistended, NT. No rebound, rigidity or guarding
Skin: Jaundiced
--- NOTE | 2024-01-27 09:28 | W.PN.UPDATE ---
Update Note
Progress Note Update
I saw and evaluated the patient. I reviewed the resident�s note and agree with findings and plan as documented in the resident�s note.
Currently denies abdominal pain.
Gen: NAD, AAOx3.
Eyes: EOMI, PERRLA, + scleral icterus.
Neck: supple.
CV: RRR, +S1/S2, no m/r/g.
Resp: CTAB, no rales, wheezes, or rhonchi.
Abd: +BS, soft, NT, ND
Skin: No rashes. + jaundice
Neuro: CN 2-12 intact, non-focal.
Psych: Normal mood and affect.
Abd MRI/MRCP 01/24/24: Findings of perforated cholecystitis with an adjacent bilobed peripherally enhancing fluid collection extending from the gallbladder fossa along the inferior edge the right hepatic lobe measuring 2.9 x 1.7 and 4.9 x 3.7 cm.
This likely represents an adjacent biloma/abscess with extensive surrounding inflammatory changes. There is mild heterogeneous enhancement of the inferior right hepatic lobe, adjacent to the collection which may represent focal reactive hepatitis.
There is intrahepatic and extrahepatic biliary ductal dilation with a 9 mm filling defect in the distal aspect of the common bile duct, likely a stone. There is wall thickening, edema and enhancement throughout the biliary system likely representing
cholangitis.
Acute choledocholithiasis, acute perforated cholecystitis:
-s/p per nomi on 01/26/24
-surgery following for timing of surgery (likely after d/c)
-ERCP today for choledocholithiasis
-cont Rocephin/Flagyl
-cont IVFs
-trend LFTs
Obesity due to excess calories:
-Encourage weight loss
-Affects all aspects of care
FULL/Heparin
--- NOTE | 2024-01-27 10:14 | CM ---
Patient seen at bedside. Patient stated no drain was needed and she anticipates ERCP today. Patient stated that she plans on discharge tomorrow. Patient has a ride home and does not anticipate needing any VN supports. Physician updated. CM will
continue to follow for discharge planning needs.
Plan; home with no needs when medically appropriate.
--- NOTE | 2024-01-27 13:01 | W.PN.HOSP.TC ---
Today's Communication/Plan
-
ERCP today
Assessment / Plan
Assessment / Plan
53yo F with PMH choledocholithiasis, asthma who presented to ED 01/24/24 for RUQ pain. She was recently admitted 01/01-01/05 and seen in ED 01/18 for similar symptoms and choledocholithiasis.
#Choledocholithiasis, cholecystitis
#Pericholecystic fluid collections
-MRI/MRCP- perforated cholecystitis; peripherally enhancing fluid collection 2.9x1.7 and 4.9x3.7 likely biloma/abscess with surrounding inflammatory changes; possible reactive hepatitis; intra and extrahepatic biliary ductal dilation with 9mm
filling defect in distal CBD likely a stone; cholangitis
-GI, general surgery, IR consulted. Appreciate recs.
- S/p IR aspiration of RUQ fluid collection- yielded 10 mL bilious, somewhat purulent fluid- sent for culture, results pending; second fluid collection noted to be deeper and not communicating- unable to attempt aspiration of this
-Plan for ERCP today with GI; eventual cholecystectomy with timing per surgery, likely after hospital discharge.
-NPO prior to procedures. IVF maintenance.
-Elevated Tbili, AST, ALT, alk phos; consistent with dx
-Pain control as needed. Adequately controlled with tylenol and ketorolac, has not required dilaudid since 01/23.
- Continue ceftriaxone and metronidazole
# Asthma
Continue albuterol HFA as needed
Code status: Full
VTE ppx: Ambulation as tolerated, SCDs. Heparin on hold for procedures
Diet: NPO prior to procedures
Dispo planning: Anticipate home pending clinical course
Anticipated Discharge: 24 - 48 hours
Subjective/Interval History
-
Date of Service: January 27, 2024
No acute events overnight. Patient feels well, no complaints. She denies lightheadedness, dizziness, chest pain, shortness of breath, nausea, vomiting. Her abdominal pain is well controlled. She is ambulating in room without difficulty.
Objective Data
-
Labs:
Laboratory Results
01/27/24
04:46
WBC 6.5
Hgb 10.2 L
Hct 30.0 L
Plt Count 260
Sodium 141
Potassium 3.5
Chloride 106
Carbon Dioxide 25
BUN 12
Creatinine 0.5 L
Glucose 91
Calcium 8.7
Total Bilirubin 6.7 H
AST 81 H
ALT 126 H
Alkaline Phosphatase 846 H
Vital Signs:
Vital Signs
Temp Pulse Resp BP Pulse Ox
98.3 F 65 18 135/76 96
01/27/24 07:50 01/27/24 07:50 01/27/24 07:50 01/27/24 07:50 01/27/24 07:50
I&O
01/26/24 01/27/24 01/28/24
06:59 06:59 06:59
Intake Total 1160 / 1160 1730 / 1730
Balance 1160 / 1160 1730 / 1730
Review of Systems
-
History Source: Patient
All other systems: Reviewed and negative
Physical Exam
-
General: Well Developed, Well Nourished, No Apparent Distress, Comfortable and Conversant
HEENT: Normocephalic and Atraumatic
Respiratory: Non Labored Respirations
Cardiac: Regular Rhythm and S1/S2
GI: Soft, Nondistended, Normal Bowel Sounds, Tender (RUQ TTP) and Other (no rebound, rigidity, guarding)
Musculoskeletal: No Edema
Skin: Warm, Dry and Jaundice
Neuro: Awake, Alert, Oriented and Nonfocal/Grossly Intact
Psych: Calm and Intact Judgement/Insight
Data Reviewed
-
Ultrasound: Report Reviewed by me
MRI: Report Reviewed by me
Labs: Labs Reviewed by me
[2024-01-27 13:35] VITALS: BP 135/76
[2024-01-27 14:17] VITALS: BP 136/94
[2024-01-27] MEDS: ZOFRAN 4 MG IV (14:20)
--- NOTE | 2024-01-27 17:00 | PTCARENOTE ---
Pt returned to 2S via stretcher, ambulated to bed with assistance via NSG staff. CLD to be resumed, reviewed with pt, pt verbalized understanding. IVF infusing per order. Bed locked and in the lowest position, safety maintained. Oriented to room and
call kelley
[2024-01-27] MEDS: STERILE WATER FOR INJECTION 20 ML IV (17:06)
[2024-01-27] MEDS: ROCEPHIN 2000 MG IV (17:06)
[2024-01-27 23:30] VITALS: BP 140/85
[2024-01-28] MEDS: NSS 1000 IV ×2 (00:45→11:12)
[2024-01-28] MEDS: FLAGYL 500 MG 100 IV ×2 (02:03→11:10)
[2024-01-28] MEDS: ZOFRAN 4 MG IV (06:22)
[2024-01-28 07:00] VITALS: BP 136/80
[2024-01-28 08:19] LABS: Hematocrit 28.7 % (37.0-47.0); Hemoglobin 9.8 g/dL (12.0-16.0); Mean Corp Hgb Conc. 34.1 g/dL (33.0-37.0); Mean Corpuscular Hgb 28.4 pg (27.0-31.0); Mean Corpuscular Volume 83.2 fL (81.0-99.0); Mean Platelet Volume 11.2 fL (7.4-10.4); Platelet Count 252 10^3/uL (130-400); Red Blood Cell Count 3.45 10^6/uL (4.20-5.40); White Blood Cell Count 8.8 10^3/uL (4.8-10.8)
[2024-01-28 08:29] LABS: ALT (SGPT) 96 U/L (0-35); AST (SGOT) 42 U/L (14-36); Alkaline Phosphatase 715 U/L (38-126); Blood Urea Nitrogen 10 mg/dl (7-17); Calcium 8.9 mg/dl (8.4-10.2); Carbon Dioxide 25 mmol/L (22-30); Chloride 109 mmol/L (98-107); Estimated Creatinine Clearance 115 ml/min; Glucose 107 mg/dl (70-99); Potassium 3.6 mmol/L (3.5-5.1); Sodium 143 mmol/L (135-145); Total Bilirubin 2.5 mg/dl (0.2-1.3); Total Protein 5.8 g/dl (6.3-8.2); eGFR > 60.00
--- NOTE | 2024-01-28 09:12 | W.PN.UPDATE ---
Update Note
Progress Note Update
I saw and evaluated the patient. I reviewed the resident�s note and agree with findings and plan as documented in the resident�s note.
Currently denies abdominal pain.
Gen: NAD, AAOx3.
Eyes: remains EOMI, PERRLA, + scleral icterus.
Neck: supple.
CV: remains RRR, +S1/S2, no m/r/g.
Resp: remains CTAB, no rales, wheezes, or rhonchi.
Abd: +BS, soft, NT, ND
Skin: No rashes. + jaundice
Neuro: CN 2-12 intact, non-focal.
Psych: Normal mood and affect.
Abd MRI/MRCP 01/24/24: Findings of perforated cholecystitis with an adjacent bilobed peripherally enhancing fluid collection extending from the gallbladder fossa along the inferior edge the right hepatic lobe measuring 2.9 x 1.7 and 4.9 x 3.7 cm.
This likely represents an adjacent biloma/abscess with extensive surrounding inflammatory changes. There is mild heterogeneous enhancement of the inferior right hepatic lobe, adjacent to the collection which may represent focal reactive hepatitis.
There is intrahepatic and extrahepatic biliary ductal dilation with a 9 mm filling defect in the distal aspect of the common bile duct, likely a stone. There is wall thickening, edema and enhancement throughout the biliary system likely representing
cholangitis.
Acute choledocholithiasis, acute perforated cholecystitis:
-s/p percutaneous gallbladder drainage on 01/26/24
-surgery following for timing of surgery (likely after d/c)
-ERCP 01/27/24: Complete removal of choledocholithiasis. Biliary tree was swept and sludge and pus was removed. One plastic stent placed in the common bile duct.
-cont Rocephin/Flagyl
-follow FCx
-clears
-LFTs improving
Obesity due to excess calories:
-Encourage weight loss
-Affects all aspects of care
FULL/Heparin
--- NOTE | 2024-01-28 09:16 | W.PN.HOSP.TC ---
Addendum entered and electronically signed by Norberto Landers MD 01/28/24 12:43:
Total time spent on d/c = 32 min. This included today's physical exam, progress note, review of laboratory and diagnostic data, preparation of discharge documents and prescriptions, and discussions about the pt's hospital course and discharge plan
with the patient and other medical collections representative involved in the patient's care.
Original Note:
Today's Communication/Plan
-
will confirm surgery plan in terms of timing today, diet advancement per GI/surgery, continue antibiotics
Assessment / Plan
Assessment / Plan
53yo F with PMH choledocholithiasis, asthma who presented to ED 01/24/24 for RUQ pain. She was recently admitted 01/01-01/05 and seen in ED 01/18 for similar symptoms and choledocholithiasis.
#Choledocholithiasis, cholecystitis
#Pericholecystic fluid collections
-MRI/MRCP- perforated cholecystitis; peripherally enhancing fluid collection 2.9x1.7 and 4.9x3.7 likely biloma/abscess with surrounding inflammatory changes; possible reactive hepatitis; intra and extrahepatic biliary ductal dilation with 9mm
filling defect in distal CBD likely a stone; cholangitis
-GI, general surgery, IR consulted. Appreciate recs.
- S/p IR aspiration of RUQ fluid collection 01/25- yielded 10 mL bilious, somewhat purulent fluid. Aspirate sent for culture, no growth after 18-24 hours, final results pending. Second fluid collection noted to be deeper and not communicating-
unable to attempt aspiration of this.
- S/p ERCP with GI 01/26- successful removal of choledocholithiasis via sphincterotomy and balloon extraction, biliary sweep with removal of sludge/pus, plastic stent placement in CBD. Per GI Will need follow up for stent removal in 2 months.
- Eventual cholecystectomy with timing per surgery, likely after hospital discharge. Will confirm surgery plan today
- Has been on clear liquid diet. Defer diet to GI and surgery
-Elevated Tbili, AST, ALT, alk phos; consistent with dx --> labs improving s/p ERCP
- Afebrile, no leukocytosis
-Pain control as needed. Adequately controlled with tylenol and ketorolac, has not required dilaudid since 01/23.
- Continue ceftriaxone and metronidazole
# Asthma
Continue albuterol HFA as needed
#Obesity due to excess calories
- Recommend weight loss with dietary modifications, excise as tolerated\\
#Anemia
- Hgb 11.6 on admission --> 9.8 today
- No obvious ongoing bleeding or bruising, do not suspect acute blood loss
- Likely chronic anemia secondary to ongoing biliary disease/inflammation
- Follow up with PCP for repeat CBC
Code status: Full
VTE ppx: Ambulation as tolerated, SCDs
Diet: Clear liquid
Dispo planning: Anticipate home pending clinical course
Anticipated Discharge: Within 24 hours
Subjective/Interval History
-
Date of Service: January 28, 2024
No acute events overnight. Feels well, no complaints. Denies lightheadedness, dizziness, chest pain, shortness of breath, nausea, vomiting. Last BM 5 days ago, patient attributes this to being on clear liquid diet and intermittently npo for
procedures, no black or bloody stools. Desires discharge home today. Ambulating in room without difficulty.
Objective Data
-
Labs:
Laboratory Results
01/28/24
07:43
WBC 8.8
Hgb 9.8 L
Hct 28.7 L
Plt Count 252
Sodium 143
Potassium 3.6
Chloride 109 H
Carbon Dioxide 25
BUN 10
Creatinine 0.5 L
Glucose 107 H
Calcium 8.9
Total Bilirubin 2.5 H D
AST 42 H
ALT 96 H
Alkaline Phosphatase 715 H
Vital Signs:
Vital Signs
Temp Pulse Resp BP Pulse Ox
97.5 F 65 18 140/85 98
01/27/24 23:30 01/27/24 23:30 01/27/24 23:30 01/27/24 23:30 01/27/24 23:30
I&O
01/27/24 01/28/24 01/29/24
06:59 06:59 06:59
Intake Total 1730 / 1730 3860 / 3860
Balance 1730 / 1730 3860 / 3860
Review of Systems
-
History Source: Patient
All other systems: Reviewed and negative
Physical Exam
-
General: Well Developed, Well Nourished, No Apparent Distress, Comfortable and Conversant
HEENT: Normocephalic and Atraumatic
Respiratory: Clear to Auscultation and Non Labored Respirations
Cardiac: Regular Rhythm and S1/S2
GI: Soft, Nontender, Nondistended, Normal Bowel Sounds and Other (no rebound, rigidity, guarding)
Musculoskeletal: No Edema
Skin: Warm and Dry
Neuro: Awake, Alert, Oriented and Nonfocal/Grossly Intact
Psych: Calm and Intact Judgement/Insight
Data Reviewed
-
Ultrasound: Report Reviewed by me
MRI: Report Reviewed by me
Labs: Labs Reviewed by me
--- NOTE | 2024-01-28 12:36 | W.DCSUMMARY ---
Addendum entered and electronically signed by Norberto Landers MD 01/29/24 08:19:
Read, reviewed, and agree. See same day progress note for additional details.
Original Note:
Discharge Summary
Discharge Data
Date of Admission: 01/24/24
Date of Discharge: 01/28/24
-
Pending Results: Yes
Additional Pending Results:
Microbiology Results
01/26/24 14:25 Fluid Body Fluid Culture - Preliminary
No Growth After 48 Hours
01/26/24 14:25 Fluid Gram Stain - Preliminary
Hospital Course
Discharging Physician : Dr. Presley, Dr. Landers
Disposition : Home
Primary care physician : Unknown
Principal Discharge diagnosis : Choledocholithiasis, perforated cholecystitis
Chronic Discharge diagnosis : Asthma, obesity, anemia
Hospital Course : Presented to ED 01/24/24 for abdominal pain; she was recently hospitalized from 01/02/24-01/06/24 for similar symptoms and choledocholithiasis. This admission, she was found to again have choledocholithiasis and cholecystitis, with
imaging significant for perforated cholecystitis and fluid collection thought to be biloma or abscess. GI, general surgery, and IR were consulted. She was treated with antibiotics throughout this hospitalization. She underwent percutaneous
aspiration of fluid collection on 01/26/24; fluid was sent for culture- final results are pending. On 01/27/24, she underwent ERCP with sphincterotomy, balloon extraction of stone, biliary sweep with removal of sludge/pus, and placement of plastic
stent in CBD. Her total bilirubin downtrended significantly, though remains elevated. On day of discharge she was stable. She will follow up with BMP to monitor LFTs, and outpatient follow up with GI, general surgery, and PCP. She will need eventual
cholecystectomy, with timing to be determined by general surgery at follow up appointment. She will need repeat ERCP with stent removal in approximately 2 months.
Important imaging findings :
Abdomen ultrasound 01/24/24
FINDINGS:
Transabdominal grayscale ultrasound of the abdomen was obtained.
There is cholelithiasis with biliary sludge and small calculi in the gallbladder
There is mild pericholecystic edema and thickening of the gallbladder wall to 4.6 mm suggesting cholecystitis
There is a 6.4 x 1.7 x 3.7 cm lobular fluid collection contiguous with and at the caudal margin of the gallbladder. This collection is increased in size when compared with the 01/19/2024 examination at which time it measured 2.9 cm. This collection
is worrisome for biloma. There is a 10 mm calculus in the distal common bile duct and the common bile duct is dilated to 8 mm with mild associated intrahepatic biliary dilatation related to the obstructing calculus
The liver is otherwise normal.
The spleen is normal.
The kidneys are normal in size contour and echogenicity bilaterally.
There is no hydronephrosis.
The pancreas, upper abdominal aorta and upper inferior vena cava are normal
IMPRESSION:
There is choledocholithiasis with a 1 cm obstructing calculus in the distal common bile duct and a 6.4 cm lobular fluid collection adjacent to the gallbladder which is high-level suspicion for biloma/leak.
Abdomen MRI with MRCP 01/24/24
IMPRESSION:
Findings of perforated cholecystitis with an adjacent bilobed peripherally enhancing fluid collection extending from the gallbladder fossa along the inferior edge the right hepatic lobe measuring 2.9 x 1.7 and 4.9 x 3.7 cm. This likely represents an
adjacent biloma/abscess with extensive surrounding inflammatory changes. There is mild heterogeneous enhancement of the inferior right hepatic lobe, adjacent to the collection which may represent focal reactive hepatitis.
There is intrahepatic and extrahepatic biliary ductal dilation with a 9 mm filling defect in the distal aspect of the common bile duct, likely a stone. There is wall thickening, edema and enhancement throughout the biliary system likely representing
cholangitis.
Procedure findings :
IR percutaneous drainage of pericholecystic fluid collection 01/26/24
Preliminary ultrasound was performed demonstrating small fluid collections in the right upper quadrant, with the dominant fluid collection abutting the inferior right hepatic lobe as well as a deeper smaller fluid collection within the gallbladder
fossa. 1% lidocaine was administered subcutaneously for local anesthesia. A 19 gauge needle was advanced into the more superficial collection under real-time ultrasound guidance. The needle was aspirated yielding approximately 10 mL of bilious,
somewhat purulent fluid. Postaspiration ultrasound demonstrated resolution of the more superficial component. The smaller, deeper component was unchanged suggesting that the two components did not in fact communicate. The needle was removed and
hemostasis was obtained with manual compression. Decision was made to not attempt percutaneous aspiration of the deeper collection given the need to transgress the liver capsule twice in order to reach it, and given its diminutive size, the
benefits of fluid collection aspiration did not seem to outweigh the bleeding risks. This was discussed with the patient. The patient tolerated the procedure well without immediate complication.
IMPRESSION:
Successful ultrasound-guided aspiration of the dominant, more superficial right upper quadrant fluid collection. The smaller, deeper component was unchanged following aspiration suggesting that the two components did not in fact communicate.
Decision was made to not attempt percutaneous aspiration of the deeper collection given the need to transgress the liver capsule twice in order to reach it, and given its diminutive size, the benefits of fluid collection aspiration did not seem to
outweigh the bleeding risks. This was discussed with the patient.
ERCP 01/27/24
Impression: - Choledocholithiasis was found. Complete removal was
accomplished by extending biliary sphincterotomy and
balloon extraction.
- The biliary tree was swept. sludge/ pus removed.
- Bile leakage was noted at the GB fossa.
- One plastic stent was placed into the common bile
duct.
Discharge Plan
-
Patient Disposition: Home (Routine Discharge)
Discharge Diagnosis/Procedures: Choledocholithiasis, perforated cholecystitis
Condition: Good
Diet: Low Fat
Activity: No restrictions and As tolerated
Driving Restrictions: As prior to admission
Bathing Restrictions: OK to Shower
Blood Work: CMP in about 1 week per GI; repeat CBC with primary care
Instructions: Gallstones (DC), Choosing surgery to treat gallstones, Low-fat diet
Referrals:
Shree Peacock MD [Active] - in four to six weeks (Please call the GI office to arrange follow up appointment. You will need another ERCP to remove the stent.)
Deonte Mittal MD [Active] - in two weeks (Please call the General Surgery office to arrange follow up appointment.)
NONE,* [Family Provider] - in less than 1 week (Please call your Primary Care Provider to schedule follow up appointment within 1 week of hospital discharge. If you do not have a PCP, you can call the Family Medicine office at [facility] for an
appointment to establish care. There referral information is provided in case you need it.)
Ronak Liu DO, Resident [Family Practice Resident Year1] - in less than 1 week (If you do not have a Primary Care Provider that you see regularly, please call the Family Medicine office for an appointment to establish care.)
Additional Discharge Medication Instructions: New medications:
- Levofloxacin (500mg tablet)- Take 1 tablet once a day for 14 days
- Metronidazole (500mg tablet)- Take 1 tablet twice a day for 14 days
Prescriptions:
New
levofloxacin 500 mg tablet
500 mg PO DAILY 14 Days Qty: 14 0RF
Rx Instructions:
Take 1 tab every day for 14 days
metronidazole 500 mg tablet
500 mg PO BID 14 Days Qty: 28 0RF
Rx Instructions:
Take 1 tab twice per day for 14 days
Continued
albuterol sulfate 90 mcg/actuation Hfa Aerosol Inhaler
2 puff INHALATION R Q6HPRN PRN (Reason: sob)
ibuprofen-acetaminophen [Advil Dual Action] 125-250 mg Tablet
2 tab PO Q8HPRN PRN (Reason: mild pain)
Discharge Orders:
Discharge Patient (As Directed); Ordered 01/28/24
Ordered By: Leandra Presley
Discharge Date and Time
Discharge Date/Time: 01/28/24 13:53
Print Language: GREEK
--- NOTE | 2024-01-28 12:46 | W.PN.GS2 ---
Addendum entered and electronically signed by Donato Edmond MD 01/28/24 13:18:
I saw and examined the patient.
The DUMP TRUCK OPERATOR's note was reviewed and I agree with the note.
Comment:
Feeling much better this morning, denies pain, tolerating clears. Passing flatus, no BM.
AFVSS, ABD S/ND/NT, no R/G
WBC 8.8, Hb stable, T. bili 2.5 from 6.7
� Okay for low-fat diet
� Continue ceftriaxone and Flagyl
� Patient insistent on discharge; explained her bilirubin has not normalized; will repeat this afternoon, but explained that it is unlikely to resolve that quickly
� Continue DVT PPx
� Continue pain control with Tylenol/Toradol
Dispo�okay for DC once bilirubin has normalized and medically cleared
Original Note:
Today's Communication / Plan
-
dispo planning
Assessment / Plan
-
Assessment: 53-year-old female presenting with obstructive jaundice secondary to choledocholithiasis, probable cholecystitis with adjacent contained fluid collection
PPD #2 IR aspiration of bile tinged fluid collection, cx preliminary with no growth
PPD #1 ERCP for removal of stones
Will need eventual cholecystectomy which was reviewed with patient. Ideally this would be performed following treatment and management of her perihepatic abscess. Will plan for outpatient management at this time as patient would like to be
discharged to home at this time on ABX and pursue surgery at a later date.
AFVSS
Bili up to 6.7 but trended down to 2.5 today
White blood cell count normal
Plan: Advanced to LFD
Continue ABX, transition to PO agent upon discharge
Surgery and GI follow up as OP
Medical management as per primary team
Case discussed with hospitalist and pin chaser
Subjective Data
-
Date of Service: January 28, 2024
Patient seen and examined at bedside with Dr. Edmond. Very eager to go home. Denies n/v. Denies pain.
Objective Data
-
Intake and Output
01/27/24 01/28/24 01/29/24
06:59 06:59 06:59
Intake Total 1730 / 1730 3860 / 3860
Balance 1730 / 1730 3860 / 3860
Intake:
Oral fluids 480 / 480 1660 / 1660
IV fluids (Total) 1250 / 1250 1900 / 1900
NSS 50 / 50
IV piggybacks 300 / 300
Other:
Number of approximated MODERATE 2 2
amounts of urine
Vital Signs
Temp Pulse Resp BP Pulse Ox
97.9 F 59 16 136/80 98
01/28/24 07:00 01/28/24 07:00 01/28/24 07:00 01/28/24 07:00 01/28/24 07:00
Lab Results
01/28/24 07:43
01/28/24 07:43
Calcium 8.9 mg/dl (8.4-10.2) 01/28/24 07:43
Magnesium 2.1 mg/dl (1.6-2.3) 01/26/24 06:04
Total Bilirubin 2.5 mg/dl (0.2-1.3) H D 01/28/24 07:43
Direct Bilirubin 5.7 mg/dl (0.0-0.4) H 01/27/24 04:46
AST 42 U/L (14-36) H 01/28/24 07:43
ALT 96 U/L (0-35) H 01/28/24 07:43
Alkaline Phosphatase 715 U/L (38-126) H 01/28/24 07:43
Total Protein 5.8 g/dl (6.3-8.2) L 01/28/24 07:43
Albumin 3.0 g/dl (3.5-5.0) L 01/28/24 07:43
Physical Exam
-
NAD AAOx3
ABD: Soft, nondistended, NT. No rebound, rigidity or guarding
Skin: Jaundiced (improved)
[2024-01-28 13:02] VITALS: BP 130/81
--- NOTE | 2024-01-29 14:08 | W.PN.UPDATE ---
Update Note
Progress Note Update
Called pt cell phone and spoke to her about new culture results- positive for yeast. Sent prescription for diflucan 200mg daily [id number] to her preferred [facility]. Patient aware and agreeable to plan. She has no further questions at this time.
Microbiology Results
01/26/24 14:25 Fluid Body Fluid Culture - Preliminary
Yeast
01/26/24 14:25 Fluid Gram Stain - Preliminary
== END 2024-01-28 13:53 | disposition home or self-care (01) | DRG 445 ==
LOC: 2 SOUTH 18:41
PROVIDERS: Internal Medicine Gastroenterology; Nurse Practitioner Family; Physician Assistant; Radiology Diagnostic Radiology; Radiology Vascular & Interventional Radiology; Registered Nurse; Student in an Organized Health Care Education/Training Program; ADMITTING PHYSICIAN Hospitalist; ATTENDING PHYSICIAN Internal Medicine; EMERGENCY PHYSICIAN Student in an Organized Health Care Education/Training Program; OTHER PHYSICIAN Specialist; OTHER PHYSICIAN Surgery
PROC: 0W9G3ZZ Drainage of Peritoneal Cavity, Percutaneous Approach (ICD-10-PCS; 2024-01-26)
PROC: 0F798DZ Dilation of Common Bile Duct with Intraluminal Device, Via Natural or Artificial Opening Endoscopic (ICD-10-PCS; 2024-01-27)
PROC: 0FC98ZZ Extirpation of Matter from Common Bile Duct, Via Natural or Artificial Opening Endoscopic (ICD-10-PCS; 2024-01-27)
DX: K80.01 Calculus of gallbladder with acute cholecystitis with obstruction (principal); K80.51 Calculus of bile duct without cholangitis or cholecystitis with obstruction; K82.A2 Perforation of gallbladder in cholecystitis; F17.210 Nicotine dependence, cigarettes, uncomplicated; J45.909 Unspecified asthma, uncomplicated; E66.09 Other obesity due to excess calories; Z68.35 Body mass index [BMI] 35.0-35.9, adult; K80.20 Calculus of gallbladder without cholecystitis without obstruction; K82.8 Other specified diseases of gallbladder; Z66 Do not resuscitate
CPT/HCPCS: 49405; 74183; 74330; 76000; 76700; 80048; 80053; 80076; 82248; 83690; 83735; 85025; 85027; 85610; 87015; 87070; 87205; 93005; 96361; 96374; 96375; 99152; 99153; 99285; 99406; A9575; C1769; C2625